=== PATIENT | female | born 1955 | race Caucasian/White ===

== ENCOUNTER → 2018-05-25 | Outpatient (CLI) | payer OTHER ==
[~2018-05-25] MED LIST: ALLEGRA180 MG PO; CALCIUM 600 +1 EA14 PO; DILTIAZEM 24HR240 MG PO; FLONASE SENSIM5.9 ML NASAL; LIPITOR10 MG PO; LOTEMAX3.5 GM OPHTHALMIC; METOPROLOL SUCC25 M1 PO; OMEPRAZOLE40 MG PO; PROAIR HFA8.5 GM IH; SYSTANE 0.3-0.1 EACH OP; ULTRAM 50MG TAB50 MG PO; ZADITOR5 M1 OP
--- NOTE | 2018-06-07 17:11 | PATH ---
[address] [address] PATHOLOGY RPT PROCEDURE Name: LAUREL BARBA Room: [facility] MASSIMO Bowden#: [id number] Admission: 05/25/18 Date of : 57 Discharge: Report #: [id number] Path Case #: [id number] [facility] Accession Number: [id number] . 01 Material submitted: . LEFT BREAST TISSUE . 01 Clinical history: . 0.46 x 0.54 x 0.62 cm mass 3 o'clock, 6 cm from nipple . 02 Diagnosis: Left breast tissue, 3:00, 6 cm from nipple, image guided core biopsies: - INFILTRATING DUCTAL ADENOCARCINOMA, INTERMEDIATE GRADE, SPANNING 4 MM (SEE COMMENT). [facility]/05/27/2018 . 02 Comment: Specimen type: Image guided core biopsies Tumor site: Left breast, 3:00, 6 cm from nipple Tumor quantitation: Approximately 10% of submitted tissues Histologic type: Ductal adenocarcinoma Histologic grade: Intermediate grade Tubules, nuclei and mitoses: 3, 2, 1 LVSI: Not identified Microcalcifications: Not identified Markers: Breast tumor profile pending Block: A3 . The majority of the submitted samples, represent benign fat without epithelial tissues; however, in A3 are several spans of infiltrating carcinoma noted to have prominent chadian filing and invading between adipocytes with minimal distortion reminiscent of a lobular carcinoma; however, focal duct formation is noted and a properly controlled E-cadherin stain performed on A3 strongly highlights the neoplastic cells supporting the classification. There is no DCIS or LCIS seen. Breast tumor profile studies are pending and will be the subject of an addendum report. . Reviewed with Dr. Mervat Farr who agrees with the diagnosis. Ashlee Mora notified of preliminary findings at approximately 12:30 on 05/26/2018. (ELIZABETH:[facility] 05/27/2018) . 02 Addendum: . Special studies report received from [facility], [address] [place] [address], [address], [place], [address], on case [id number], labeled with their number [id number], dated 05/31/2018. [place] [address] PATHOLOGY RPT PROCEDURE Name: LAUREL BARBA Room: [facility]#: [id number] Admission: 05/25/18 Date of : 57 Discharge: Report #: [id number] Path Case #: [id number] . Breast/Prognostic Marker Analysis . Specimen Site: Left Breast, 3:00 (Biopsy), Infiltrating Ductal Adenocarcinoma Specimen ID #: [id number] . ER (Estrogen Receptor) Present/Positive Percent: 95.00% Analysis: Manual Comments: Staining Intensity: Strong. . CT (Progesterone Receptor) Present/Positive Percent: 60.00% Analysis: Manual Comments: Staining Intensity: Moderate. . HER2 Equivocal Score: 2+ Analysis: Manual . Ki-67 Low Proliferation Percent: 10.00% Analysis: Manual . Time to Fixation (Cold Ischemic Time): 4 minutes Duration of Fixation: 10 hours Type of Fixative: 10% Neutral Buffered Formalin . Comments: Additional studies: Reflex HER2 by FISH will be reported separately. . at [facility] [employer]. Dennis Gonzalez M.D. Pathologist . . Methodology The HER2 Receptor protein expression is analyzed using the Continental HER2 rabbit monoclonal antibody (clone 4B5). This assay is used for diagnostic determination of the HER2 protein over-expression in paraffin embedded, formalin fixed breast cancer tissue on the Continental Benchmark. The specimen is processed using a polymer detection system. The membrane staining of the tumor is determined either by manual score or [place] [address] PATHOLOGY RPT PROCEDURE Name: LAUREL BARBA Room: [facility] MASSIMO Bowden#: [id number] Admission: 05/25/18 Date of : 57 Discharge: Report #: [id number] Path Case #: [id number] antibody is intended for in vitro diagnostic use. The score is reported as per package insert; 0, 1+, 2+, and 3+. This test is used for clinical purposes. . A rabbit monoclonal antibody (clone SP1) that recognized the Estrogen Receptor is used to perform immunohistochemistry on routinely fixed (formalin) paraffin embedded tissue on the Continental Benchmark. The specimen is processed using a polymer detection system. The percentage of stained tumor nuclei is determined either manually or by image analysis. This test is intended for in vitro diagnostic use. This test is used for clinical purposes. . A rabbit monoclonal antibody (clone 1E2) that recognized the Progesterone Receptor is used to perform immunohistochemistry on routinely fixed (formalin) paraffin embedded tissue on the Continental Benchmark. The specimen is processed using a polymer detection system. The percentage of stained tumor nuclei is determined either manually or by image analysis. This test is intended for in vitro diagnostic use. This test is used for clinical purposes. . A rabbit monoclonal antibody (clone 30-9) that recognized Ki67 is used to perform immunohistochemistry on routinely fixed (formalin) paraffin embedded tissue on the Continental Benchmark. The specimen is processed using a polymer detection system. The percentage of stained tumor nuclei is determined either manually or by image analysis. This test is intended for in vitro diagnostic use. This test is used for clinical purposes. . Intended Use: This antibody is intended for in vitro diagnostic (IVD) use. HER2 (4B5) is a rabbit monoclonal antibody intended for the semi-quantitative detection of HER2 antigen in sections of formalin-fixed, paraffin embedded normal and neoplastic tissue. . This antibody is intended for in vitro diagnostic (IVD) use. Estrogen Receptor (ER) (SP1) is a rabbit monoclonal antibody (IgG) that is intended for the qualitative detection of estrogen receptor (ER) antigen in sections of formalin-fixed, paraffin-embedded tissue. ER is a rabbit monoclonal antibody that recognizes human estrogen receptor alpha. . This antibody is intended for in vitro diagnostic (IVD) use. Progesterone Receptor (CT) (1E2) is a rabbit monoclonal antibody (IgG) that is intended for the qualitative detection of progesterone receptor (CT) antigen in sections of formalin fixed, paraffin embedded tissue. CT is a rabbit monoclonal antibody that recognizes the A and B forms of the human progesterone receptor. . This antibody is intended for in vitro diagnostic (IVD) use. Ki-67 (30-9) is a rabbit monoclonal antibody (IgG) directed against C-terminal portion of Ki-67 antigen. Staining for Ki-67 can be used to aid [place] [address] PATHOLOGY RPT PROCEDURE Name: LAUREL BARBAN Room: [facility]#: [id number] Admission: 05/25/18 Date of : 57 Discharge: Report #: [id number] Path Case #: [id number] proliferative activity of normal and neoplastic tissue. Ki-67 is a nuclear protein expressed in proliferating cells. During the cell cycle, the Ki-67 antigen is present in the G1, S, G2 and M phase but is absent in the G0 (quiescent phase). . . Disclaimer This Test was performed by [employer] at [address], [address]. . [facility] is a business unit of [employer] a wholly-owned subsidiary of [employer]. . This assay has not been validated on decalcified tissues. Results should be interpreted with caution if this specimen was decalcified given the likelihood of false negativity on decalcified specimens. . Any image(s) that accompany this report is/are a entry level marketing representative image(s) only and should not be used to render a diagnosis. . This interpretation is contingent on the specimen and the clinical information received. . For any special tests/stains performed, known positive cells or tissues are tested with each marker and examined to ensure positivity. Positive and negative internal controls, if present, react appropriately. . This analysis is an adjunct to the evaluation of the referring physician and does not represent a final diagnosis. . The immunohistochemistry tests performed at [employer]. were validated on tissue fixed in 10% neutral buffered formalin. The performance characteristics of the tests performed on tissue processed in other fixatives is not known. . HER2 testing at [employer] is performed in compliance with the 2013 updated ASCO/CAP Clinical Practice Guidelines and Recommendations for HER2 testing in Breast Cancer. If the result is EQUIVOCAL (2+), it must be confirmed by an alternative assay such as FISH or Dual DARI. REF: Pebbles MORA, et al. Recommendations for human epidermal growth factor receptor 2 testing in breast cancer: [place] Society of Clinical Oncology/College of [place] pathologists Clinical Practice Guideline Update. J Clin Oncol. 2013 Jun 16;31(31):8410-0666. . HER2 and ER/CT ASCO/CAP guidelines require fixation in neutral buffered formalin for a minimum of 6 and a maximum of 72 hours. Fixation times less than 6 hours may not adequately preserve cell proteins. Fixation times longer than 72 hours may cause excess [place] [address] PATHOLOGY RPT PROCEDURE Name: LAUREL BARBA Room: [facility] MASSIMO Bowden#: [id number] Admission: 05/25/18 Date of : 57 Discharge: Report #: [id number] Path Case #: [id number] the antigen available for staining. Either scenario can cause reduced staining; hence false negative results are possible and should be considered for these situations if the HER2 IHC score is less than 3+ or ER or CT is negative (no staining or <1% positive). It is recommended that specimens fixed longer than 72 hours with HER2 IHC scores less than 3+ be confirmed by HER2 FISH or Dual DARI. The time from biopsy/excision to fixation in formalin (cold ischemic time) must be less than 1 hour. Time to fixation (cold ischemic time) greater than 1 hour should be interpreted with caution. HER2 testing, mainly HER2 by FISH, is particularly vulnerable since excessive cold ischemic time results in preferential loss of HER2 probe signals that may lead to false negative results. . SCORE STAINING PATTERN IN TUMOR CELLS INTERPRETATION RESULTS 0 No staining observed or incomplete, faint membrane staining in less than or equal to 10% of tumor cells. Negative 1+ Incomplete, faint membrane staining in greater than 10% of tumor cells. Negative 2+ Incomplete and/or weak/moderate circumferential membrane staining in greater than 10% of the invasive tumor cells or complete, circumferential, intense alternative assay staining in less than or equal to 10% of invasive tumor cells. Equivocal* *Must be confirmed by alternative assay (IHC/FISH/Dual DARI) 3+ Intense, complete membrane staining in greater than 10% of tumor cells. Positive . A complete copy of the report is on file. . Professional and Technical services performed by [facility]. at [facility] [address]. . (TWILA 06/01/2018) . . . This case was prepared and proofread by Dr. Matt Cho and electronically signed and released by Dr. John Flowers. . (ELIZABETH:twila; 06/01/2018) LBQ/06/01/2018 Addendum Electronically Signed by John Flowers M.D. Addendum #2: Special studies report received from [facility], [facility] [address] PATHOLOGY RPT PROCEDURE Name: LAUREL BARBA Room: [facility]#: [id number] Admission: 05/25/18 Date of : 57 Discharge: Report #: [id number] Path Case #: [id number] [address], [facility], on case [id number], labeled with their number [id number], dated 06/07/2018. . Fluorescence in situ Hybridization (FISH) Report HER2/CAITY-17 Dual-Probe (Breast Cancer) . Result: Negative/Not Amplified HER2/CAITY-17 Ratio: 1.5 Avg number of HER2 Signals/Nucleus: 2.7 . Indication for Study: Breast Cancer Specimen Site/Type: Left Breast, 3:00 (Biopsy) Fixative: 10% Neutral Buffered Formalin Time to Fixation: 4 Minutes Duration of Fixation: 10 Hours . HER2 FISH ANALYSIS Number of tumor cells counted: 20 Number of observers: 2 Avg number of HER2 Signals/Nucleus: 2.7 Avg number of CAITY-17 Signals/Nucleus: 1.9 Ratio of average HER2/CAITY-17: 1.5 . See report [id number] for further information. . Reviewed and electronically signed by Dennis Gonzalez M.D. on 06/07/2018 at [employer] Dennis Gonzalez M.D. . . Methodology: A FDA approved DAKO HER2 IQFISH pharmDX (HER2/CAITY-17 DNA Probe Kit) was used for the assessment of HER2 gene amplification status. The FISH analysis was performed on areas of invasive tumor cells that were defined by a pathologist from a corresponding H/E slide. A minimum of twenty invasive tumor nuclei were analyzed by two technologists. For each nucleus, the number of HER2 signals and the number of centromere 17 (CAITY-17) signals were recorded. Enumeration results are reported as a ratio of the total HER2 hybridization signals to CAITY-17 hybridization signals. An average number of HER2 signals/nucleus and an average number of centromere 17 signals/nucleus were also recorded. If the HER2/CAITY-17 ratio is greater than or equal to 2, the HER2 gene status is Amplified/Positive. If the HER2/CAITY-17 ratio is <2, the HER2 gene status is Non-Amplified/Negative. If results are at or near the cut off (1.8-2.2), an additional 20 nuclei are counted and the ratio for 40 nuclei is recalculated. A HER2/CAITY-17 ratio of 1.8-2.2 should be interpreted with caution. The ASCO/CAP guideline of 2013 (see below), includes additional criteria for determination of HER2 amplification or equivocal status based on the average HER2 signals/[place] [address] PATHOLOGY RPT PROCEDURE Name: LAUREL BARBAN [facility] [id number] Admission: 05/25/18 Date of : 57 Discharge: Report #: [id number] Path Case #: [id number] . ASCO/CAP 2018 SCORING CRITERIA GROUP 1 HER2/CAITY-17 ratio >/= 2.0 HER2 signals/cell >/= 4.0 FISH Positive . GROUP 2 HER2/CAITY-17 ratio >/= 2.0 HER2 signals/cell < 4.0 Additional work-up required (see comments) . GROUP 3 HER2/CAITY-17 ratio < 2.0 HER2 signals/cell >/= 6.0 Additional work-up required (see comments) . GROUP 4 HER2/CAITY-17 ratio < 2.0 HER2 signals/cell >/= 4.0 AND < 6.0 Additional work-up required (see comments) . GROUP 5 HER2/CAITY-17 ratio < 2.0 HER2 signals/cell < 4.0 FISH Negative . . Specimen handling: Tissue samples should be preserved in 10% neutral buffered formalin for 18-24 hours per FDA approved DAKO HER2 IQFISH pharmDX. Extended fixation time might increase the incubation time required for Pepsin digestion. ASCO/CAP guidelines requires fixation for a minimum of 6 and a maximum of 72 hours. The time from biopsy/excision to fixation in formalin (cold ischemic time) must be less than an hour. Time to fixation (cold ischemic time) greater than 1 hour should be interpreted with caution. HER2 testing, mainly HER2 by FISH, is particularly vulnerable since excessive cold ischemic time results in preferential loss of HER2 probe signals that may lead to false negative results. . Intended Use: HER2 IQFISH pharmDX is indicated as an aid in the assessment of breast cancer patients for whom Herceptin? (Trastuzumab), PERJETATM (pertuzumab) or KADCYLATM (ado-trastuzumab emtansine) treatment is being considered. Results from HER2 IQFISH pharmDX are also used as an adjunct to the clinicopathologic information currently used for estimating prognosis in stage II, node-positive breast cancer patients. . Reference: [address] [address] PATHOLOGY RPT PROCEDURE Name: LAUREL BARBA Room: [facility].#: [id number] Admission: 05/25/18 Date of : 57 Discharge: Report #: [id number] Path Case #: [id number] Pebbles MORA, Casey SWAIN, Mahi QUINTANA, et al: Recommendations for HER2 Testing in Breast Cancer: ASCP/CAP Clinical Practice Guideline Update. J Clin Oncol. 2013 Jun 16; 31(31):1449-6897. DAKO kit: Histology FISH Accessory kit code K5799 . Disclaimer This Test was performed by [employer]. at [address] [place] [address]. [facility] is a business unit of [employer] a wholly-owned subsidiary of [employer]. . . This assay has not been validated on decalcified tissues. Results should be interpreted with caution if this specimen was decalcified given the likelihood of false negativity on decalcified specimens. . Any image(s) that accompany this report is/are a entry level marketing representative image(s) only and should not be used to render a diagnosis. . A copy of the complete report is on file. . Professional services performed by [employer]. at [address] [place] [address]. Technical services performed by [facility]. at [address] [place] [address]. . (AMJ 06/07/2018) . AZJ/06/07/2018 Addendum Electronically Signed by Matt Cho MD, Pathologist . 02 Electronically signed: . Matt Cho MD, Pathologist NPI- [id number] . 01 Gross description: . Received in formalin labeled "Laurel Barba, left breast 3:00, 6 cm FN," are multiple needle cores of yellow-perez fibrofatty tissue measuring 0.8 x 1.2 x 0.3 cm in aggregate dimensions. The tissue is submitted in its entirety in cassettes A1 through A3. The cold ischemic time is 4 minutes. The total formalin fixation time is approximately 10 hours. (TSD; 05/25/2018) TOB/TOB . 02 Pathologist provided ICD-10: C50.912 . 02 CPT . [facility] [address] [place] [address] PATHOLOGY RPT PROCEDURE Name: LAUREL BARBA Room: [facility]#: [id number] Admission: 05/25/18 Date of : 57 Discharge: Report #: [id number] Path Case #: [id number], [id number] Specimen Comment: A courtesy copy of this report has been sent to Specimen Comment: [phone], . Specimen Comment: Report sent to / DR RODRIGUES Performed at: 01 [facility] [address], [place], [place] [address] MD Bulmaro Chaudhary MD Phone: [phone] Performed at: 02 [facility] [address] [place], [place] [id number] MD Matt Cho MD Phone: [phone]
== END | disposition home or self-care (01) ==
LOC: M.ULTRA 08:03
DX: C50.912 Malignant neoplasm of unspecified site of left female breast (principal); R92.1 Mammographic calcification found on diagnostic imaging of breast; Z91.040 Latex allergy status; Z88.8 Allergy status to other drugs, medicaments and biological substances; Z79.899 Other long term (current) drug therapy

== ENCOUNTER → 2018-06-08 | Outpatient (CLI) | payer OTHER ==
[2018-06-08 11:08] LABS: CREATININE 0.7 mg/dL (0.6-1.3)
== END ==
LOC: M.LAB 10:30 → M.MRI 11:30
PROVIDERS: Surgery
DX: C50.412 Malignant neoplasm of upper-outer quadrant of left female breast (principal)

== ENCOUNTER → 2018-06-28 | Day surgery (SDC) | payer OTHER ==
[2018-06-28 09:25] LABS: ABSOLUTE BASOPHILS 0.1 thou/uL (0.0-0.2); ABSOLUTE EOSINOPHILS 0.1 thou/uL (0.0-0.7); ABSOLUTE LYMPHOCYTES 1.7 thou/uL (0.8-5.3); ABSOLUTE MONOCYTES 0.8 thou/uL (0.0-1.2); ABSOLUTE NEUTROPHILS 3.8 thou/uL (1.6-8.1); BASOPHILS 0.9 %; EOSINOPHILS 2.3 %; HEMATOCRIT 38.7 % (37.0-47.0); HEMOGLOBIN 12.8 gm/dL (12.0-15.0); LYMPHOCYTES 25.9 %; MCH 31.3 pg (26.0-34.0); MCHC 33.1 g/dL (28.0-37.0); MCV 94.6 fL (80.0-100.0); MONOCYTES 11.8 %; MPV 7.9 fl. (7.2-11.1); NUCLEATED RBCS 0 /100WBC; PLATELET COUNT* 298 thou/uL (150-400); POLYS 59.1 %; RBC 4.09 mil/uL (4.20-5.00); RDW-CV 13.5 % (10.5-14.5); WBC 6.5 thou/uL (4.0-11.0)
[2018-06-28 09:31] LABS: CALCIUM 9.1 mg/dL (8.5-10.1); CREATININE 0.8 mg/dL (0.6-1.3); POTASSIUM 3.7 mmol/L (3.5-5.1)
[2018-06-28 09:35] LABS: ALBUMIN 3.8 g/dL (3.4-5.0); TOTAL BILIRUBIN 0.4 mg/dL (<0.1-1.0); TOTAL PROTEIN 7.2 g/dL (6.4-8.2)
--- NOTE | 2018-06-28 11:22 | EKG ---
[place] [address] ELECTROCARDIOGRAM REPORT Name: OLIVERIO HUTCHINS Room: [facility]#: [id number] Admission: 06/28/18 Attend Phys: Ashlee Carter DO Discharge: Date of : 57 Report #: [id number] THIS REPORT FOR: //name// [facility] Test Date: 2018-06-28 Test Time: 08:58:37 Pat Name: OLIVERIO HUTCHINS Department: Room: Gender: F Benefits Representative: : 1955 Requested By: Ashlee Carter Order Number: [id number] Reading MD: Óscar Coombs Measurements Intervals [place] Rate: 65 P: 57 [place]: 191 QRS: 13 QRSD: 93 T: 6 QT: 427 QTc: 444 Interpretive Statements Sinus rhythm Left atrial enlargement Compared to ECG 02/11/2008 08:18:26 Atrial abnormality now present First degree AV block no longer present Electronically Signed On 06-28-2018 11:22:14 [employer] ARCHITECT by Óscar Coombs [email or web address] <ELECTRONICALLY SIGNED> By: Óscar Coombs MD, [facility] 06/28/18 [phone] Óscar Coombs MD, [facility] /EPI
--- NOTE | 2018-06-30 11:26 | OP ---
[address] [address] OPERATIVE REPORT Name: OLIVERIO HUTCHINS Room: [facility].#: [id number] Admission: 06/28/18 Attend Phys: Ashlee Carter DO Discharge: Date of : 57 Report #: [id number] THIS REPORT FOR: //name// CC: Ashlee Peñaloza DATE OF SERVICE: 06/28/2018 PREOPERATIVE DIAGNOSIS: Left breast cancer. POSTOPERATIVE DIAGNOSIS: Left breast cancer. FINDINGS: Wire and needle inserted in the left breast. SURGEON: Ashlee Carter DO INSTRUMENTATION AND CONTROLS TECHNICIAN: Kayleigh Byrd, PGY1 PROCEDURE PERFORMED: Left breast wire-guided lumpectomy and a left deep sentinel lymph node dissection. ANESTHESIA: General LMA and local. ESTIMATED BLOOD LOSS: 20 mL. DRAINS: None. SPECIMENS: Left breast lumpectomy with wire superior medial margin, lateral margin and left deep sentinel lymph node. COMPLICATIONS: None. CONDITION: Stable. DISPOSITION: PACU to home. HISTORY OF PRESENT ILLNESS: The patient is a very pleasant 62-year-old female who initially presented to my office with a change in her mammogram. She underwent an ultrasound-guided biopsy, which was positive for left breast cancer. She was seen by Oncology and underwent further preoperative workup. It was then decided to move forward with a left breast wire-guided lumpectomy and a left sentinel lymph node dissection. Risks discussed included bleeding, infection, pain, scar formation, deformation of the breast, need for further surgery, injury to artery, vein or nerve and the axilla causing chronic pain, [address] [address] OPERATIVE REPORT Name: OLIVERIO HUTCHINS Room: [facility] M..#: [id number] Admission: 06/28/18 Attend Phys: Ashlee Carter DO Discharge: Date of : 57 Report #: [id number] numbness or swelling and risks of general anesthesia. The patient understood these risks and elected to proceed. DESCRIPTION OF PROCEDURE: The patient initially presented to preop and was then taken to Radiology where she underwent a left breast wire localization and a left breast nuclear medicine injection. She then returned to preop where she underwent informed consent. She was taken to the Operating Room and laid supine on the operating room table. SCDs were placed to bilateral lower extremities. Ancef was given in the perioperative period. General LMA anesthesia was induced by anesthesia without difficulty. A 5 mL of Lymphazurin blue dye were injected in the periareolar area. Left breast was then prepped and draped in the standard sterile fashion. Timeout was performed to verify the patient and procedure. Tip of the wire and the needle were palpated and marked. A 10 mL of 0.5% Marcaine were injected in the area of the planned incision. Incision was made with a 10-blade and cautery was used for hemostasis. Then, using the wire for guidance, a lumpectomy specimen was formed using a combination of blunt and cautery dissection. Specimen was marked in the superior and lateral direction and was sent to Radiology for mammography. While we were awaiting the return call, I turned my attention to the axilla. Neoprobe was brought on to the field and the nipple was investigated, the highest uptake was approximately 12,000. The Neoprobe was then moved into the axilla and the area of highest uptake was marked. A 10 mL of 0.5% Marcaine were injected in the area of the planned incision. Incision was made with a 10-blade and cautery was used for hemostasis. Then, using a combination of blunt and cautery dissection, I gently dissected down into the axilla until the clavipectoral fascia was identified. A self-retaining Weitlaner retractor was placed within the wound. The clavipectoral fascia was gently incised using cautery. At this point, very clear line of blue dye could be seen diving down into the axilla. This blue line was followed until a large blue lymph node was identified. It was gently grasped using an Allis clamp and elevated. Uptake on the Neoprobe on this lymph node was approximately 2100. The lymph node was gently dissected free from the surrounding tissues. Once out of the body, it was reexamined with a Neoprobe and the highest uptake was 2300. This was then handed off as the left deep sentinel lymph node. Neoprobe was returned into the axilla and there was no further uptake noted. Wound was irrigated until clear. Hemostasis was assured. Wound was then filled with FloSeal. Weitlaner retractor was removed. At this point, Radiology then returned our phone call and indicated that they did not have the clip in the specimen, although the wire was intact and there were microcalcifications in the specimen. At this point, an additional superior medial margin and a lateral margin were both taken. Both were marked in the superior and lateral direction and returned to Radiology for re-mammography. At this point, all of the breast tissue from the skin surface at the entry point of the wire all the way to the nipple had been completely removed from the 3-6 o'clock position. Radiologist again returned the phone call and indicated that they did not have the thick clip, but that he believed that we did have the required specimen. The wound was then irrigated until clear. Hemostasis was [facility] [address] [place] [address] OPERATIVE REPORT Name: OLIVERIO HUTCHINS [id number]: 06/28/18 Attend Phys: Ashlee Carter DO Discharge: Date of : 57 Report #: [id number] assured. This cavity was then also filled with FloSeal. Wound was closed in a layered fashion using deep and superficial stitches of 3-0 Vicryl in inverted interrupted fashion. Skin wound was closed with running 4-0 Monocryl. A total of 30 mL of 0.5% Marcaine were used to anesthetize the wounds. Wounds were then cleansed and covered with Mastisol, Steri-Strips, 4 x 4's, and a Tegaderm. The patient was then allowed to awaken from anesthesia, was extubated and transported to the recovery room with no further difficulties. Counts were correct x 2 at the conclusion of the case. <ELECTRONICALLY SIGNED> By: Ashlee Carter DO 06/30/18 [id number] Carter DO /nt
--- NOTE | 2018-07-25 09:52 | PATH ---
[address] [address] PATHOLOGY RPT PROCEDURE Name: LAUREL HUTCHINS Room: [facility].#: [id number] Admission: 06/28/18 Date of : 57 Discharge: Report #: [id number] Path Case #: [id number] [facility] Accession Number: [id number] . 01 Material submitted: . PART A: LEFT BREAST MASS, LUMPECTOMY PART B: SENTINEL NODE, LEFT BREAST PART C: MEDIAL BREAST TISSUE PART D: LATERAL BREAST TISSUE . 01 Clinical history: . Malignant neoplasm of upper outer quadrant of left breast; left breast infiltrating ductal carcinoma, ER/MI positive . A) short suture superior, long suture lateral; C) short suture superior, long suture lateral; D) short suture superior, long suture lateral . . . . 02 Diagnosis: A. Left breast mass, lumpectomy: - INFILTRATING DUCTAL ADENOCARCINOMA, INTERMEDIATE GRADE, SPANNING AN ESTIMATED 25 MM, IN ASSOCIATION WITH CHANGES OF PRIOR BIOPSY WITH EXTENSIVE INVOLVEMENT OF ANTERIOR, LATERAL AND POSTERIOR MARGINS. - DUCTAL CARCINOMA IN SITU (DCIS), NUCLEAR GRADE III, COMEDO, SOLID AND CRIBRIFORM TYPES ASSOCIATED WITH CALCIFICATIONS, SPANNING ESTIMATED 15 MM, WITH FOCAL INVOLVEMENT OF ANTERIOR MARGIN. SEE COMMENT. . B. Left breast sentinel node: - METASTATIC ADENOCARCINOMA, INTERMEDIATE GRADE, TYPICAL OF BREAST PRIMARY, SPANNING 3 MM, WITH FOCAL EXTRANODAL EXTENSION(08/16). SEE COMMENT. . C. Medial breast tissue: - Benign breast tissue with ductal epithelial hyperplasia, duct ectasia, focal chronic inflammation and scattered luminal calcifications, negative for atypia. . D. Lateral breast tissue: - DUCTAL CARCINOMA, INTERMEDIATE GRADE, SPANNING ESTIMATED 25 MM, WITH PROMINENT INVOLVEMENT OF LATERAL, SUPERIOR AND ANTERIOR MARGINS, AND WITH LYMPHOVASCULAR INVASION IDENTIFIED. - FOCAL DCIS, NUCLEAR GRADE III, SOLID TYPE, SPANNING 6 MM WITH INVOLVEMENT OF ANTERIOR MARGIN. SEE COMMENT. . (ELIZABETH:mml; 06/30/18) QL/07/04/2018 [place] [address] PATHOLOGY RPT PROCEDURE Name: LAUREL HUTCHINSN Room: [facility].#: [id number] Admission: 06/28/18 Date of : 57 Discharge: Report #: [id number] Path Case #: [id number] . 02 Comment: Surgical Pathology Cancer Case Summary . INVASIVE CARCINOMA OF THE BREAST: . Procedure Other (specify): Lumpectomy with additional wider medial and lateral margins . Specimen Laterality Left . . Tumor Size Greatest dimension of largest invasive focus >1 mm: Estimated 25 mm (see comment) . Histologic Type Invasive ductal carcinoma . Histologic Grade (Hitchcock Histologic Score) Glandular (Acinar)/Tubular Differentiation Score 3 (<10% of tumor area forming glandular/tubular structures) . Nuclear Pleomorphism Score 2 (cells larger than normal with open vesicular nuclei, visible nucleoli, and moderate variability in both size and shape) . Mitotic Rate Score 1 (=3 mitoses per mm2) . Overall Grade Grade 2 (scores of 6 or 7) . + Tumor Focality Single focus of invasive carcinoma . Ductal Carcinoma In Situ (DCIS) Present +Negative for extensive intraductal component (EIC) . + Size (Extent) of DCIS + Estimated size (extent) of DCIS (greatest dimension using gross and microscopic evaluation): at least 15 mm . + Architectural Patterns + Comedo + [place] [address] PATHOLOGY RPT PROCEDURE Name: LAUREL HUTCHINS Room: [facility]#: [id number] Admission: 06/28/18 Date of : 57 Discharge: Report #: [id number] Path Case #: [id number] + Solid . + Nuclear Grade + Grade III (high) . + Necrosis + Present, central (expansive "comedo" necrosis) . + Lobular Carcinoma In Situ (LCIS) + No LCIS in specimen . Margins . Invasive Carcinoma Margins Positive for invasive carcinoma Specify margin(s): Anterior, lateral and posterior of lumpectomy (A) and lateral, superior and anterior margins of additional lateral marginal tissue (D) . DCIS Margins Positive for DCIS + Multifocal + Anterior margin of lumpectomy (A) and anterior margin of additional wider lateral breast tissue (D) . Regional Lymph Nodes Involved by tumor cells + Size of Largest Metastatic Deposit (millimeters): 3 mm . + Extranodal Extension: + Present . Treatment Effect No known presurgical therapy . + Lymphovascular Invasion + Present . PATHOLOGIC STAGE CLASSIFICATION (pTNM, AJCC 8th Edition) . Primary Tumor (Invasive Carcinoma) (pT) pT2:Tumor >20 mm but </=50 mm in greatest dimension . Regional Lymph Nodes Modifier (sn):[place] node evaluated. . Category (pN) pN1a:Metastases in 1 to 3 axillary lymph nodes, at least 1 [place] [address] PATHOLOGY RPT PROCEDURE Name: LAUREL HUTCHINS Room: [facility]#: [id number] Admission: 06/28/18 Date of : 57 Discharge: Report #: [id number] Path Case #: [id number] larger than 2.0 mm . + Ancillary Studies performed previously ([id number] A3) ER 95%, MI 60%, HER2 equivocal with FISH negative, Ki-67 10% . + Microcalcifications + Present in invasive carcinoma + Present in non-neoplastic tissue + Other: Medial calcification of blood vessels . + Clinical History Previous left breast tissue 3:00, 6 cm from nipple, image-guided core biopsy showing ductal adenocarcinoma intermediate grade ([id number]) . The tumor infiltrates in a prominent "Omani file" fashion, and also extends in between individual adipocytes, reminiscent of lobular carcinoma and similar to that seen in the prior core biopsy, which was evaluated and shown to be strongly positive for E-cadherin throughout. . The size of the tumor in specimens A and D are estimated based on its identification in the slides (A14, A16, A18, A20 and A22-26; D1-D10). Properly-controlled keratin AE1/AE3 performed on B1 highlights the metastatic tumor, also demonstrating focal extranodal involvement of fat. . (ELIZABETH:mmstevie; 06/30/18) . 02 Addendum: . Special studies report received from [facility], [address] [place] [address], [address], [place], [address], on case [id number], labeled with their number [id number], dated 07/20/2018. . Referral Testing Report . . Test Performed Prosigna(R) . Specimen Type Tissue - Paraffin-Embedded - Breast, Left . Results Alternate Control Number: [id number] Alternate Total Volume: Not Provided Fasting: No Date collected: 06/28/2018 . Block Number: [place] [id number] Tumor Size: > 2 [place] [address] PATHOLOGY RPT PROCEDURE Name: LAUREL HUTCHINS [id number] Admission: 06/28/18 Date of : 57 Discharge: Report #: [id number] Path Case #: [id number] Lymph Nodes: Node-positive (1-3 nodes) . Patient Prosigna Score: 72 . Risk Group: HIGH RISK . The Prosigna Score ranges from 0 through 100 and correlates with the probability of distant recurrence (DR) in the tested population. Risk classification is provided to guide the interpretation of the Prosigna Score using cutoffs related to clinical outcome. Prosigna Scores greater than 80 are considered high risk, and the score is not reported. . Risk Group Prosigna Score . Low risk 0-40 . High risk 41-100 . Distant Recurrence Probability Comment: In the clinical validation study, patients who were node- positive (1-3 nodes), with a Prosigna Score of 72 were in the high risk group. The high risk population averaged a 24% probability of distant recurrence at 10 years. The Prosigna algorithm was used in retrospective analysis of the ABCSG-8 clinical trial which included more than 1400 patients with varying risks of distant recurrence. Please refer to Prosigna package insert for further information, including the graphic content of the retrospectively fitted model relating Prosigna Score to 10-year distant recurrence for node-positive (1-3 nodes) patients in the ABCSG-8 study. . Clinical Validation Study Prognosis for node-positive (1-3 nodes) breast cancer patients was determined based on the probability of distant recurrence(DR) for this patient population in the validation study ABCSG-8. This study analyzed 382 node-positive (1-3 nodes) samples using a prospectively defined analysis plan. The data shown in the table below are for post-menopausal women with hormone receptor-positive, node-positive (1-3 nodes), Stage II breast cancer that received 5 years of endocrine therapy. . . Probability of DR Prespecified Patient Risk Group at 10 years for node-negative Patients . . ABCSG-8 Low Risk High Risk (95% CI) (95% [place]) [place] [address] PATHOLOGY RPT PROCEDURE Name: LAUREL HUTCHINS Room: [facility]#: [id number] Admission: 06/28/18 Date of : 57 Discharge: Report #: [id number] Path Case #: [id number] 6% 24% (3%-12%) (19%-31%) . . Test Information: Background: The Prosigna(TM) Breast Cancer Prognostic Gene Signature Assay is an FDA approved assay which provides a risk category and numerical score, to assess a patient's risk of distant recurrence of disease at 10 years in postmenopausal women with node-negative (Stage I or II) or node-positive (Stage II), hormome receptor-positive (HR+) breast cancer. The Prosigna(TM) assay measures gene expression levels of RNA extracted from formalin-fixed paraffin-embedded (FFPE) breast tumor tissue previously diagnosed as invasive breast carcinoma. . Performance characteristics of the Prosigna(TM) assay have been established for postmenopausal women with hormone receptor positive early stage breast cancer treated with 5 years of adjuvant endocrine therapy. Performance with other treatment regimens or in other patient populations has not been established. The interpretation of Prosigna(TM) assay results (Prosigna(TM) Score, risk category) should be evaluated within the context of other clinicopathological factors, the patient's medical history and any other laboratory test results. Prosigna(TM) is not intended for diagnosis, to predict or detect response to therapy, or to help select the optimal therapy for patients. . Methodology: The Prosigna(TM) assay is performed on RNA isolated from FFPE breast tumor tissue. It simultaneously measures the expression levels of 50 genes used in PAM50 classification algorithm, 8 housekeeping genes used for signal normalization, 6 positive controls, and 8 negative controls in a single hybridization reaction, using nucleic acid probes designed specifically to those genes. . Comment: Microdissection has been performed at [address] [facility], [place] [address]. . References: 1. Package Insert: Prosigna Breast Cancer Prognostic Gene Signature Assay; v1, created 2013-04; REF [id number]. 2. Brittany Castellanos, et al, Predicting risk for late metastasis: The PAM50 risk of recurrence (ROR) score after 5 years of endocrine therapy in postmenopausal women with HR+ early breast cancer: A study on 1,478 patients for the ABCSG-8 trial. Bibi Oncol 2013; 24 (Supplement 3): [id number]. 3. Niranjan Tierney et al, Supervised Risk Predictor of Breast Cancer Based on Intrinsic Subtypes. J. Clin Onc v27 No.8 (2009):3233-4591. [place] [address] PATHOLOGY RPT PROCEDURE Name: LAUREL HUTCHINS Room: [facility] M.R.#: [id number] Admission: 06/28/18 Date of : 57 Discharge: Report #: [id number] Path Case #: [id number] . Director Review: Antonieta Linares, Ph.D., [facility], Director, Molecular Genetics [facility] [place], [place] Rigger Helper: Zane Galvez . . Disclaimer This Test was performed by [facility] at [address] [place] [address], [address]. [employer] is a business unit of [employer], a wholly-owned subsidiary of [employer]. . . . General Comments and Additional Information Clinical Info: DATE OF COLLECTION: 06/28/ Clinical Info: 2018 @ 1155 SPECIMEN TYPE: Clinical Info: 1 PARAFREDOI . Alternate Control Number: [id number] Alternate Total Volume: Not Provided Fasting: No . Ordered Items Prosigna(R) . . TESTS RESULT FLAG UNITS REFERENCE LAB INTERVAL Prosigna(R) Block Number: Comment: 01 [place] [id number] Tumor Size: > 2 cm 01 Lymph Nodes: Node-positive (1-3 nodes) 01 Patient Prosigna Score 72 01 Risk Group HIGH RISK 01 The Prosigna Score ranges from 0 through 100 and correlates with the probability of distant recurrence (DR) in the tested population. Risk classification is provided to guide the interpretation of the Prosigna Score using cutoffs related to clinical outcome. Prosigna Scores greater than 80 are considered high risk, and the score is not reported. . Risk Group Prosigna Score . Low risk 0-40 [place] [address] PATHOLOGY RPT PROCEDURE Name: LAUREL HUTCHINS [facility] [id number] Admission: 06/28/18 Date of : 57 Discharge: Report #: [id number] Path Case #: [id number] . High risk 41-100 . Distant Recurrence Probability Comment: 01 In the clinical validation study, patients who were node- positive (1-3 nodes), with a Prosigna Score of 72 were in the high risk group. The high risk population averaged a 24% probability of distant recurrence at 10 years. . The Prosigna algorithm was used in retrospective analysis of the ABCSG-8 clinical trial which included more than 1400 patients with varying risks of distant recurrence. Please refer to Prosigna package insert for further information, including the graphic content of the retrospectively fitted model relating Prosigna Score to 10-year distant recurrence for node-positive (1-3 nodes) patients in the ABCSG-8 study. Clinical Validation Study 01 Prognosis for node-positive (1-3 nodes) breast cancer patients was determined based on the probability of distant recurrence(DR) for this patient population in the validation study ABCSG-8. This study analyzed 382 node-positive (1-3 nodes) samples using a prospectively defined analysis plan. The data shown in the table below are for post-menopausal women with hormone receptor-positive, node-positive (1-3 nodes), Stage II breast cancer that received 5 years of endocrine therapy. . Probability of DR Prespecified Patient Risk Group at 10 years for node-positive (1-3 nodes) Patients . ABCSG-8 Low Risk High Risk (95% CI) (95% CI) . 6% 24% (3%-12%) (19%-31%) . Test Information: 01 Background: The Prosigna(TM) Breast Cancer Prognostic Gene Signature Assay is an FDA approved assay which provides a risk category and numerical score, to assess a patient's risk of distant recurrence of disease at 10 years in postmenopausal women with node-negative (Stage I or II) or node-positive (Stage II), hormome receptor-positive (HR+) breast cancer. The Prosigna(TM) assay measures gene expression levels of RNA extracted from formalin-fixed paraffin-embedded (FFPE) breast tumor tissue previously diagnosed as invasive breast carcinoma. [address] [address] PATHOLOGY RPT PROCEDURE Name: LAUREL HUTCHINS Room: [facility].#: [id number] Admission: 06/28/18 Date of : 57 Discharge: Report #: [id number] Path Case #: [id number] Performance characteristics of the Prosigna(TM) assay have been established for postmenopausal women with hormone receptor positive early stage breast cancer treated with 5 years of adjuvant endocrine therapy. Performance with other treatment regimens or in other patient populations has not been established. The interpretation of Prosigna(TM) assay results (Prosigna(TM) Score, risk category) should be evaluated within the context of other clinicopathological factors, the patient's medical history and any other laboratory test results. Prosigna(TM) is not intended for diagnosis, to predict or detect response to therapy, or to help select the optimal therapy for patients. Methodology: The Prosigna(TM) assay is performed on RNA isolated from FFPE breast tumor tissue. It simultaneously measures the expression levels of 50 genes used in PAM50 classification algorithm, 8 housekeeping genes used for signal normalization, 6 positive controls, and 8 negative controls in a single hybridization reaction, using nucleic acid probes designed specifically to those genes. References: 1. Package Insert: Prosigna Breast Cancer Prognostic Gene Signature Assay; v1, created 2013-04; REF [id number]. 2. Brittany Castellanos, et al, Predicting risk for late metastasis: The PAM50 risk of recurrence (ROR) score after 5 years of endocrine therapy in postmenopausal women with HR+ early breast cancer: A study on 1,478 patients for the ABCSG-8 trial. Bibi Oncol 2013; 24 (Supplement 3): [id number]. 3. Niranjan Tierney et al, Supervised Risk Predictor of Breast Cancer Based on Intrinsic Subtypes. J. Clin Onc v27 No.8 (2009):6310-2413. Director Review Antonieta Linares, PhD, [facility] 01 Director, Molecular Genetics [facility] [place], [place] Microdissection Performed Completed Image . 01 . . PROSIGNA ID #: [id number] Tumor Size: > 2cm Lymph Nodes: node-positive (1-3 nodes) Assay Description: The Prosignar breast cancer gene signature assay measures the expression of 58 different genes to report the Prosigna Score, which is used along with the patient's palma status to assign a risk classification defined by prespecified Prosigna Score cutpoints. The Prosigna Score is derived from a proprietary algorithm based on the PAM50 gene signature1, and includes information on the [place] [address] PATHOLOGY RPT PROCEDURE Name: LAURLE HUTCHINS Room: [facility] M.R.#: [id number] Admission: 06/28/18 Date of : 57 Discharge: Report #: [id number] Path Case #: [id number] tumor's gene expression with four prototypical PAM50 molecular profiles, as well as proliferation and the pathologic tumor size. . Patient Prosigna Score*: 72 High Risk * The Prosigna Score ranges from 0 through 100 and correlates with the probability of distant recurrence (DR) in the tested population. Risk classification is provided to guide the interpretation of the Prosigna Score using cutoffs related to clinical outcome. Prosigna Scores greater than 80 are considered high risk, and the score is not reported. . . Clinical Trial Results: Probability of Distant Recurrence In the clinical validation study, patients who were node-positive (1-3 nodes), with a Prosigna Score of 72 were in the high risk group. The high risk population averaged a 24% probability of distant recurrence at 10 years. The Prosigna algorithm was used in retrospective analysis of the ABCSG-8 clinical trial which included more than 1400 patients with varying risks of distant recurrence. The retrospectively fitted model relating Prosigna Score to 10-year distant recurrence for node-positive (1-3 nodes) patients in the ABCSG-8 study is displayed below. . . For more information, visit [employer] or [email or web address]-mail [email or web address] . Due to small sample size of patients with scores greater than 80 in the clinical validation study, the exact relationship of the Prosigna Score to probability of DR could not be established with a retrospective model fitting. Data apply to patients being treated with endocrine therapy for 5 years as in the tested patient population. See Package Insert for further information on therapeutic regimens and tested patient population. It is unknown whether these findings can be extended to other patient populations or treatment schedules. Average DR rate observed in ABCSG-8 for patients within 10 Prosigna Score units. . . ID #: [id number] Tumor Size: > 2cm Lymph Nodes: node-positive (1-3 nodes) Clinical Trial Results: Clinical Validation Study: Prognosis for node-positive (1-3 nodes) breast cancer patients was determined based on the probability of distant recurrence (DR) for this patient population in the validation study ABCSG-8. This study analyzed 382 node-positive (1-3 nodes) samples using a prospectively defined analysis plan. The data shown are for post-menopausal women with hormone receptor-positive, node-positive (1-3 nodes), Stage II breast cancer that received 5 years of endocrine therapy.* . Probability of DR for Node-positive Prespecified Patient Risk Group [address] [address] PATHOLOGY RPT PROCEDURE Name: LAUREL HUTCHINS Room: [facility]..#: [id number] Admission: 06/28/18 Date of : 57 Discharge: Report #: [id number] Path Case #: [id number] (1-3 nodes) Patients ABCSG-8 Low Risk (95% CI) High Risk (95% CI) 6% (3%-12%) 24% (19%-31%) . . . DRFS BY Risk Group for Node-positive (1-3- nodes) Patients The Prosigna Score classifies Node-positive (1-3 nodes) Patients as low or high-risk based on prespecified thresholds that indicate probability of DR at 10 years. In the ABCSG-8 clinical validation study, the probability of DR at 10 years for low-risk, Node-positive (1-3 nodes) Patients was 6% (95% CI: 3%-12%), while the probability of DR at 10 years for high-risk patients was 24% (95% CI: 19%-31%). . For more information, visit [email or web address] or [email or web address]-mail [email or web address] * See Package Insert for further information on therapy regimens and tested patient population. It is unknown whether these findings can be extended to other patient populations or treatment schedules. REFERENCES: 1. Niranjan KEITH, et al., Supervised Risk Predictor of Breast Cancer Based on Intrinsic Subtypes. Journal of Clinical Oncology, v27 No. 8 2008) 1189-9440 2. Prosigna Package Insert 3. Jasmin Kaiser et al., P2, Clinical Validation of the PAM50 risk of recurrence (ROR) score for predicting residual risk of distant recurrence (DR) after endocrine therapy in postmenopausal women with HR+ early breast cancer (EBC): An ABCSG study, [facility] 2012. . A complete copy of the report is on file. . Professional services performed by [employer] at [address], [place] [address]. Technical services performed by [employer] at [address], [place] [address]. . ([facility] 07/21/2018) . [place]/07/21/2018 Addendum Electronically Signed by Matt Cho MD, Pathologist . 02 Electronically signed: . Matt Cho MD, Pathologist NPI- [id number] . 01 Gross description: . A. The specimen is received in formalin, labeled "Stevie Hernandez breast mass lumpectomy, long lateral, short superior". Received is a 20 g lumpectomy specimen oriented with a short suture designating the superior margin and a long suture designating the lateral margin. [place] [address] PATHOLOGY RPT PROCEDURE Name: LAUREL HUTCHINS BOO Room: [facility]#: [id number] Admission: 06/28/18 Date of : 57 Discharge: Report #: [id number] Path Case #: [id number] measures 4.6 cm from superior to inferior, 3.6 cm from anterior to posterior, and 3.1 cm from medial to lateral. There is a localization wire present within the specimen container, however, is not attached to the specimen. The specimen is inked as follows: Superior-blue, inferior-green, lateral-red, medial-yellow, anterior-black, posterior-orange. Sectioning reveals bright yellow, lobulated to white-shrestha, fibrous cut surfaces throughout, with the fibrous tissue encompassing approximately 15% of the specimen. A previous biopsy site is not grossly distinct. The specimen is submitted entirely from superior to inferior aspects in cassettes A1 through A26, with sections of cassettes A2 through A21 additionally bisected into anterior and posterior aspects. The cold ischemic time is 1 hour and 16 minutes. The total formalin fixation time is 32 hours and 41 minutes. . B. The specimen is received in formalin, labeled "Laurel Hutchins, left sentinel node". Received is a segment of bright yellow lobulated tissue measuring 1.6 x 1.4 x 1.0 cm in greatest dimensions. Dissection and palpation of the specimen reveals a single lymph node measuring 1.1 cm in maximum dimensions. The lymph node is bisected and entirely submitted in cassette B1. Immunohistochemical stains are ordered. . C. The specimen is received in formalin, labeled "Laurel Hutchins, medial left breast mass, long lateral, short superior". Received is a 10 g lumpectomy specimen oriented with a short suture designating the superior margin and a long suture designating the lateral margin. The specimen measures 4.6 cm from superior to inferior, 2.8 cm from medial to lateral, and 2.2 cm from anterior to posterior. The specimen is inked as follows: Superior-blue, inferior-green, lateral-red, medial-yellow, anterior-black, posterior-orange. Sectioning reveals white-shrestha, fibrous to bright yellow, lobulated cut surfaces throughout, with the fibrous tissue encompassing approximately 95% of the specimen. The specimen is submitted entirely from superior to inferior aspects in cassettes C1 through C14. The cold ischemic time is 1 hour and 1 minute. The total formalin fixation time is 32 hours and 41 minutes. . D. The specimen is received in formalin, labeled "Laurel Hutchins, lateral left breast mass, long lateral, short superior". Received is an 11 g lumpectomy specimen oriented with a short suture designating the superior margin, and a long suture designating the lateral margin. The specimen measures 4.5 cm from superior to inferior, 3.0 cm from anterior to posterior, and 2.4 cm from medial to lateral. The specimen is inked as follows: Superior-blue, inferior-green, lateral-red, medial-yellow, anterior-black, posterior-orange. Sectioning reveals bright yellow, lobulated cut surfaces throughout with a slight amount of hemorrhage present near the superior/anterior aspect. No distinct nodules or lesions are noted grossly. The specimen is submitted entirely from superior to inferior aspects in cassettes D1 through D14. The cold ischemic time is 11 minutes. The total formalin fixation time is 32 hours and 41 minutes. (CAA; 06/29/2018) [place] [address] PATHOLOGY RPT PROCEDURE Name: LAUREL HUTCHINS Room: [facility]#: [id number] Admission: 06/28/18 Date of : 57 Discharge: Report #: [id number] Path Case #: [id number] QAC/QAC . 02 Pathologist provided ICD-10: C50.912, D05.12, C77.3 . 02 CPT . 780200, 259983, 778761, 557728, R43117 Specimen Comment: A courtesy copy of this report has been sent to Specimen Comment: [phone], , . Specimen Comment: Report sent to ,DR VICENTE / DR ROBERTS Specimen Comment: A duplicate report has been generated due to demographic updates. Performed at: [address], [place], [place] [id number] MD Bulmaro Chaudhary MD Phone: [phone] Performed at: 02 [facility] [address], [place], [place] [id number] MD Matt Cho MD Phone: [phone]
== END | disposition home or self-care (01) ==
LOC: M.SUR 06:57
PROVIDERS: Surgery
DX: C50.412 Malignant neoplasm of upper-outer quadrant of left female breast (principal); C77.3 Secondary and unspecified malignant neoplasm of axilla and upper limb lymph nodes; I10 Essential (primary) hypertension; Z88.8 Allergy status to other drugs, medicaments and biological substances; Z79.899 Other long term (current) drug therapy; Z91.041 Radiographic dye allergy status; Z90.710 Acquired absence of both cervix and uterus; Z98.890 Other specified postprocedural states; Z82.49 Family history of ischemic heart disease and other diseases of the circulatory system

== ENCOUNTER → 2018-08-03 | Day surgery (SDC) | payer OTHER ==
[~2018-08-03] MED LIST changes: +ALLEGRA ALLERG180 MG PO; -ALLEGRA180 MG PO; +DILTIAZEM 24HR240 M2 PO; -DILTIAZEM 24HR240 MG PO; +KLOR-CON 1010 MEQ PO; +ZADITOR5 M1 OPHTHALMIC
[2018-08-03 13:49] LABS: HEMATOCRIT 40.5 % (37.0-47.0); HEMOGLOBIN 13.5 gm/dL (12.0-15.0); MCH 31.2 pg (26.0-34.0); MCHC 33.2 g/dL (28.0-37.0); MCV 93.9 fL (80.0-100.0); MPV 7.7 fl. (7.2-11.1); RBC 4.31 mil/uL (4.20-5.00); RDW-CV 13.3 % (10.5-14.5); WBC 7.6 thou/uL (4.0-11.0)
[2018-08-03 13:56] LABS: CALCIUM 9.3 mg/dL (8.5-10.1); CREATININE 0.7 mg/dL (0.6-1.3); POTASSIUM 3.3 mmol/L (3.5-5.1)
--- NOTE | 2018-08-05 12:58 | OP ---
[address] [address] OPERATIVE REPORT Name: OLIVERIO HUTCHINS Room: [facility].#: [id number] Admission: 08/03/18 Attend Phys: Ashlee Carter DO Discharge: Date of : 57 Report #: [id number] THIS REPORT FOR: //name// CC: Ashlee Peñaloza DATE OF SERVICE: 08/03/2018 PREOPERATIVE DIAGNOSES: Left breast invasive ductal carcinoma with positive margins after lumpectomy and need for chemo port for chemotherapy. POSTOPERATIVE DIAGNOSES: Left breast invasive ductal carcinoma with positive margins after lumpectomy and need for chemo port for chemotherapy. FINDINGS: Status post left breast lumpectomy with a well-defined lumpectomy cavity. There was still at least 1 cm margin on the lateral edge, which we were able to take. Posterior margin was taken all the way to the pectoralis fascia. SURGEON: Ashlee Carter DO. COSURGEON: Reinier Ramirez DO. HEALTH EQUIPMENT SERVICER: Claudia Byrd, PGY1. PROCEDURE PERFORMED: Left breast reexcision for lateral margin and posterior margin and a right internal jugular ultrasound and fluoroscopy guided chemo port placement with surgeon interpretation of images. ANESTHESIA: General LMA and local. ESTIMATED BLOOD LOSS: Overall, was 25 mL. SPECIMENS: Left breast lateral margin, left breast posterior margin and fluoroscopy pictures. COMPLICATIONS: None. CONDITION: Stable. DISPOSITION: PACU to home. HISTORY OF PRESENT ILLNESS: The patient is a very pleasant 62-year-old female who is well known to me after being diagnosed with left breast cancer. She had previously undergone a left breast wire localized lumpectomy and sentinel lymph node dissection. Unfortunately, our final lumpectomy specimen was possibly positive for margins on the lateral and the posterior aspect. [place] [address] OPERATIVE REPORT Name: OLIVERIO HUTCHINS Room: [facility]#: [id number] Admission: 08/03/18 Attend Phys: Ashlee Carter DO Discharge: Date of : 57 Report #: [id number] sentinel lymph node was positive and she is now in need of chemotherapy and a chemo port. Risks and benefits of surgery were discussed with her in detail. She was offered either reexcision for margins or mastectomy. She indicated that she would like to try to obtain negative margins, but that she was okay if we needed to move forward with mastectomy as well. The patient understood all the risks and benefits and agreed to proceed. DESCRIPTION OF PROCEDURE: The patient was brought to the operating room. She was laid supine on the operating room table. SCDs were placed to bilateral lower extremities. Ancef was given in the perioperative period. General LMA anesthesia was induced by anesthesia without difficulty. The left breast was prepped and draped in standard sterile fashion. Timeout was performed to verify patient and procedure. 10 mL of 0.5% Marcaine were injected in the previous lumpectomy incision. Incision was reopened using a 15 blade. Cautery was used for hemostasis. Then, using very gentle blunt dissection, we were able to immediately enter the seroma cavity. A small amount of seroma was suctioned away. The entirety of the cavity was then opened to the incision. There were very clearly defined edges of the previous lumpectomy. There was at least 1 cm of tissue on the lateral aspect of the breast. This area was grasped using an Allis clamp and was then transected right under the skin surface using a 15 blade until we reached the posterior margin. There was one area, which I believe was where the wire localization occurred where the skin was tented into the subcutaneous tissue, a small section of skin was taken here. This lateral margin was then marked in the superior and lateral direction and was handed off. At this point, we had papers and margins on the lateral aspect of the breast. I then turned my attention to the posterior margin. This area was also grasped using an Allis clamp, was gently elevated and was transected from the surrounding tissues utilizing cautery. I continued the depth to the posterior margin until I did reach the pectoralis fascia and then completely excised the margin. Margin was again marked in the superior and lateral direction and was handed off for permanent pathology. Hemostasis was assured within the wound. Wound was irrigated with 50 mL of normal saline until clear. It was filled with FloSeal. The incision was then closed using 3-0 Vicryl in inverted interrupted fashion. Skin was closed with running 4-0 Monocryl. The area of our small skin skyler was closed with 1 stitch of a 4-0 Monocryl. A total of 30 mL of 0.5% Marcaine were used to anesthetize the wounds. Wounds were then cleansed and covered with Mastisol, Steri-Strips, 4 x 4's, and a Tegaderm. The patient's drapes were then completely removed. The right neck and chest were then prepped and draped in the standard sterile fashion. Timeout was again performed to verify patient and procedure. Ultrasound was used to visualize the right IJ and it appeared to be patent and healthy. A 10 mL of 0.5% Marcaine were injected in this area. Then, using ultrasound guidance, the right IJ was accessed with one pass of the needle. Excellent flow was obtained. Wire passed without difficulty. Needle was removed. Wire was again visualized in the internal jugular utilizing the ultrasound. Fluoroscopy was then brought on to the field and the wire was visualized in the superior vena cava. Infraclavicular pocket [address] [address] OPERATIVE REPORT Name: OLIVERIO HUTCHINS Room: [facility].#: [id number] Admission: 08/03/18 Attend Phys: Ashlee Carter DO Discharge: Date of : 57 Report #: [id number] was then created using a 15 blade. Cautery was used for hemostasis and adequately sized pocket was then created using a combination of blunt and cautery dissection. An 11 blade was used to make a skyler at the site of our wire insertion. The breakaway dilator was passed without difficulty. The dilator and the wire were then removed. Chemo port tubing was then introduced through the breakaway catheter without issue. Breakaway catheter was then removed. Tubing was then tunneled into our previously created pocket without difficulty. Fluoroscopy was returned onto the field and the chemo port tubing was withdrawn until the tip of the catheter was visualized within the superior vena cava. It was then connected to our subcutaneous port. Port was accessed. There was excellent draw and flush from the port. Flush was vigorously irrigated using injectable saline. It was then locked with 3 mL of premixed heparin flush. Port was then sutured into place using 2 stitches of 3-0 Prolene. Our incision was then closed with 3-0 Vicryl and 4-0 Monocryl. A total of 20 mL of 0.5% Marcaine were used to anesthetize the wound. Wound was then cleansed and covered with Mastisol, Steri-Strips, 4 x 4's, and a Tegaderm. The patient was then allowed to awake from the anesthesia, was extubated and transported to the recovery room with no further difficulties. Counts were correct x 2 at the conclusion of the case. <ELECTRONICALLY SIGNED> By: Ashlee Carter DO 08/05/18 1258 1655 [id number] Carter DO /nt
--- NOTE | 2018-08-11 12:05 | PATH ---
[address] [address] PATHOLOGY RPT PROCEDURE Name: OLIVERIO HUTCHINS Room: [facility]..#: [id number] Admission: 08/03/18 Date of : 57 Discharge: Report #: [id number] Path Case #: [id number] [facility] Accession Number: [id number] . 01 Material submitted: . PART A: LEFT BREAST LATERAL MARGIN, SHORT SUPERIOR, LONG LATERAL PART B: LEFT BREAST POSTERIOR MARGIN, SHORT SUPERIOR, LONG LATERAL . 01 Clinical history: . Malignant neoplasm upper outer quadrant left breast . 02 Diagnosis: A LEFT BREAST LATERAL MARGIN: - RESIDUAL DUCTAL ADENOCARCINOMA, INTERMEDIATE GRADE, SPANNING 2 MM, ADJACENT TO CHANGES OF RECENT PRIOR SURGERY, WITH FOCAL INVOLVEMENT OF LATERAL MARGIN (0.3 MM SPAN). SEE COMMENT. . B. LEFT BREAST POSTERIOR MARGIN: - RESIDUAL DUCTAL ADENOCARCINOMA, INTERMEDIATE GRADE, SPANNING 0.4 MM, ADJACENT TO CHANGES OF RECENT PRIOR SURGERY, WITH ALL FINAL MARGINS FREE OF INVOLVEMENT AND CLOSEST (POSTERIOR) LOCATED 5 MM AWAY. SEE COMMENT. LBQ/08/10/2018 . 02 Comment: A focus of residual infiltrating tumor is seen to span 2 mm in a finger-like fashion extending from the changes of prior surgery out to focally involve the final lateral margin where it spans 0.3 mm (A11). A focus of infiltrating tumor spanning 0.4 mm is adjacent to changes of prior surgery where it is located 5 mm away from the closest (posterior) surgical margin in B9. Prominent luminal calcifications and medial calcification of blood vessels is seen in non-neoplastic tissues of both specimens. . This patient had a left breast lumpectomy from around 06/28/2018, which showed ductal adenocarcinoma, intermediate grade, with involvement of margins ([id number] A and B). . Discussed with Dr. Carter on early afternoon of 08/10/2018. (ELIZABETH/db; 08/08/2018) . 02 Electronically signed: . Matt Cho MD, Pathologist NPI- [id number] . 01 Gross description: . A. The specimen is received in formalin, labeled "Oliverio Hutchins, left breast lateral margin, short superior, long lateral". Received is a 9 g lumpectomy specimen oriented with a [place] [address] PATHOLOGY RPT PROCEDURE Name: OLIVERIO HUTCHINS BOO Room: [facility]#: [id number] Admission: 08/03/18 Date of : 57 Discharge: Report #: [id number] Path Case #: [id number] margin and a long suture designating the lateral margin. The specimen measures 6.1 cm from superior to inferior, 3.1 cm from anterior to posterior, and 1.5 cm from medial to lateral. The specimen is inked as follows: Superior-blue, inferior-green, lateral-red, medial-yellow, anterior-black, posterior-orange. Sectioning reveals bright yellow, lobulated cut surfaces throughout with fat necrosis present, as well as a slight amount of fibrous tissue near the inferior margin. No distinct nodules or lesions are noted grossly. The specimen is submitted entirely from superior to inferior aspects in cassettes A1 through A14. The cold ischemic time is 1 minute. The total formalin fixation time is 27 hours and 25 minutes. . B. The specimen is received in formalin, labeled "Oliverio Hutchins, left breast posterior margin, short superior, long lateral". Received is an 11 g lumpectomy specimen oriented with a short suture designating the superior margin and a long suture designating the lateral margin. The specimen measures 4.7 cm from medial to lateral, 4.1 cm from superior to inferior, and 1.5 cm from anterior to posterior. The specimen is inked as follows: Superior-blue, inferior-green, lateral-red, medial-yellow, anterior-black, posterior-orange. Sectioning reveals bright yellow, lobulated cut surfaces throughout with a slight amount of fat necrosis. No distinct nodules or lesions are noted grossly. The specimen is submitted entirely from superior to inferior aspects in cassettes B1 through B17. The sections in cassettes B3 through B14 additionally bisected into medial and lateral aspects. The cold ischemic time is 6 minutes. The total formalin fixation time is 27 hours and 27 minutes. (CAA; 08/04/2018) QAC/QAC . 02 Pathologist provided ICD-10: C50.912 . 02 CPT . 257101, 918072 Specimen Comment: A courtesy copy of this report has been sent to Specimen Comment: [phone], . Specimen Comment: Report sent to / DR VICENTE Specimen Comment: A duplicate report has been generated due to demographic updates. Performed at: 01 [facility] [address], [place], [place] [id number] MD Bulmaro Chaudhary MD Phone: [phone] Performed at: 02 [facility] [address], [place], [place] [id number] MD Matt Cho MD Phone: [phone]
== END | disposition home or self-care (01) ==
LOC: M.SUR 07:21
PROVIDERS: Surgery
DX: C50.412 Malignant neoplasm of upper-outer quadrant of left female breast (principal); Z45.2 Encounter for adjustment and management of vascular access device; I10 Essential (primary) hypertension; Z98.890 Other specified postprocedural states; Z90.710 Acquired absence of both cervix and uterus; Z82.49 Family history of ischemic heart disease and other diseases of the circulatory system; Z88.8 Allergy status to other drugs, medicaments and biological substances

== ENCOUNTER → 2018-08-15 | Outpatient (CLI) | payer OTHER ==
[~2018-08-15] MED LIST changes: -ALLEGRA ALLERG180 MG PO; +ALLEGRA180 MG PO; -DILTIAZEM 24HR240 M2 PO; +DILTIAZEM 24HR240 MG PO; -KLOR-CON 1010 MEQ PO
--- NOTE | 2018-08-15 13:11 | 2DMMODE ---
[place] [address] 2 D/M-MODE ECHOCARDIOGRAM Name: OLIVERIO HUTCHINS Room: [facility]#: [id number] Admission: 08/15/18 Attend Phys: Cale Miner MD Discharge: Date of : 57 Date of Service: 08/15/18 1311 Report #: [id number] THIS REPORT FOR: //name// APPROVED REPORT Study performed: 08/15/2018 09:58:49 EXAM: Comprehensive 2D, Doppler, and color-flow Echocardiogram Patient Location: Out-Patient Status: routine BSA: 1.73 HR: 57 bpm BP: 140/70 mmHg Other Information Study Quality: Good Technically limited study due to post operative dressings. Indications Chemo 2D Dimensions IVSd: 11.35 (7-11mm) LVOT Diam: 20.34 (18-24mm) LVDd: 45.91 mm PWd: 9.91 (7-11mm) Ascending Ao: 27.22 (22-36mm) LVDs: 26.76 (25-40mm) Aortic Root: 27.67 mm Volumes Left Atrial Volume (Systole) LA ESV Index: 17.90 mL/m2 Aortic Valve AoV Peak Moy.: 0.84 m/s AO Peak Gr.: 2.80 mmHg LVOT Max P.46 mmHg AO Mean Gr.: 1.57 mmHg LVOT Mean P.07 mmHg LVOT Max V: 0.78 m/s AO V2 VTI: 17.65 cm LVOT Mean V: 0.47 m/s RAHUL (VTI): 3.23 cm2 LVOT V1 VTI: 17.54 cm Mitral Valve E/A Ratio: 1.32 MV Decel. Time: 171.97 [place] [address] 2 D/M-MODE ECHOCARDIOGRAM Name: OLIVERIO HUTCHINSN Room: [facility]#: [id number] Admission: 08/15/18 Attend Phys: Cale Miner MD Discharge: Date of : 57 Date of Service: 08/15/18 1311 Report #: [id number] MV E Max Moy.: 0.93 m/s MV PHT: 49.87 ms MVA (PHT): 4.41 cm2 TDI E/Lateral E': 8.45 E/Medial E': 9.30 Medial E' Moy.: 0.10 m/s Lateral E' Moy.: 0.11 m/s Pulmonary Valve PV Peak Moy.: 0.82 m/s PV Peak Gr.: 2.68 mmHg Left Ventricle The left ventricle is normal size. There is normal LV segmental wall motion. There is normal left ventricular wall thickness. Left ventricular systolic function is normal. The left ventricular ejection fraction is within the normal range. LVEF is 55-60%. The left ventricular diastolic function is normal. Right Ventricle The right ventricle is normal size. The right ventricular systolic function is normal. Atria The left atrium size is normal. The right atrium size is normal. Aortic Valve The aortic valve is normal in structure. Trace aortic regurgitation. There is no aortic valvular stenosis. Mitral Valve The mitral valve is normal in structure. There is no mitral valve regurgitation noted. No evidence of mitral valve stenosis. Tricuspid Valve The tricuspid valve is normal in structure. There is no tricuspid valve regurgitation noted. Pulmonic Valve The pulmonary valve is normal in structure. Mild pulmonic regurgitation. Great Vessels The aortic root is normal in size. IVC is normal in size and collapses >50% [place] [address] 2 D/M-MODE ECHOCARDIOGRAM Name: OLIVERIO HUTCHINS Room: [facility]#: [id number] Admission: 08/15/18 Attend Phys: Cale Miner MD Discharge: Date of : 57 Date of Service: 08/15/18 1311 Report #: [id number] Pericardium There is no pericardial effusion. <Conclusion> The left ventricle is normal size. There is normal left ventricular wall thickness. Left ventricular systolic function is normal. The left ventricular ejection fraction is within the normal range. LVEF is 55-60%. The left ventricular diastolic function is normal. The right ventricle is normal size. The left atrium size is normal. The aortic valve is normal in structure. Trace aortic regurgitation. There is no aortic valvular stenosis. The mitral valve is normal in structure. The tricuspid valve is normal in structure. IVC is normal in size and collapses >50% with inspiration. The aortic root is normal in size. There is no pericardial effusion. There is normal LV segmental wall motion. <ELECTRONICALLY SIGNED> By: Norm Guerrero MD, FACC 08/15/18 131 10 10 Norm Guerrero MD, FACC /INF
== END ==
LOC: M.CRD 09:43
DX: I51.7 Cardiomegaly (principal); C50.412 Malignant neoplasm of upper-outer quadrant of left female breast; Z17.0 Estrogen receptor positive status [ER+]

== ENCOUNTER 2018-09-05 06:17 | Inpatient (IN) | payer OTHER ==
[~2018-09-05] VITALS: Ht 165.1 cm; Wt 67.9 kg
--- NOTE | ~2018-09-05 | H ---
[address] [address] HISTORY AND PHYSICAL Name: OLIVERIO HUTCHINS Room: [address] M.R.#: [id number] Admission: 09/05/18 Attend Phys: Ashlee Carter DO Discharge: 09/06/18 Date of : 57 Report #: [id number] THIS REPORT FOR: //name// Please refer to the History and Physical performed in the physician's office. By: 0707Medical Records Staff ROSELINE /PHONG
[~2018-09-05 06:17] MED LIST changes: +ALLEGRA ALLERG180 MG PO; -ALLEGRA180 MG PO; +DILTIAZEM 24HR240 M2 PO; -DILTIAZEM 24HR240 MG PO; +KLOR-CON 1010 MEQ PO
[2018-09-05 06:44] LABS: HEMATOCRIT 41.1 % (37.0-47.0); HEMOGLOBIN 13.9 gm/dL (12.0-15.0); MCH 31.5 pg (26.0-34.0); MCHC 33.8 g/dL (28.0-37.0); MCV 93.2 fL (80.0-100.0); MPV 7.8 fl. (7.2-11.1); RBC 4.41 mil/uL (4.20-5.00); RDW-CV 13.3 % (10.5-14.5); WBC 7.8 thou/uL (4.0-11.0)
[2018-09-05 06:47] LABS: CALCIUM 9.6 mg/dL (8.5-10.1); CREATININE 0.8 mg/dL (0.6-1.3); POTASSIUM 3.2 mmol/L (3.5-5.1)
[2018-09-05 11:49] VITALS: BP 144/55
--- NOTE | 2018-09-05 12:17 | NUR ---
PT ADMITTED TO UNIT. PT IS ALERT AND ORIENTED. PT IS ON 2 LITERS O2 BY NASAL CANNULA. PT IS SLEEPY AND WANTS TO REST. PT DENIES ANY N/V. SCOPOLAMINE PATCH BEHIND LT EAR IN PLACE. FALL RISK PRECAUTIONS IN PLACE. WILL CONTINUE TO MONITOR.
[2018-09-05 16:27] VITALS: BP 148/63
--- NOTE | 2018-09-05 17:05 | NUR ---
PT REMAINED ALERT AND ORIENTED. PT IS ON 2 LITERS O2. PT DENIES ANY PAIN OR N/V. PT PREFERS JUST TYLENOL FOR PAIN. TYLENOL GIVEN SCHEDULED THIS SHIFT. PT IS TIRED AND JUST WANTS TO SLEEP. DRESSING DRY AND INTACT TO CHEST. LEEANN DRAINS IN PLACE WITH MINIMAL DRAINAGE AND WILL BE EMPTIED THIS SHIFT. FALL RISK PRECAUTIONS IN PLACE. HOURLY ROUNDING COMPLETED. WILL CONTINUE TO MONITOR.
[2018-09-05 19:20] VITALS: BP 115/54
--- NOTE | 2018-09-05 22:26 | NUR ---
PT ASSESSMENT COMPLETE, REFER TO COMPUTER CHARTING FOR FURTHER DETAILS. VSS. PT DENIES PAIN, NAUSEA, SOA. FALL PRECAUTIONS IN PLACE, CLWR. HOURLY ROUNDING FOR PT SAFETY
[2018-09-06 00:51] VITALS: BP 113/46
[2018-09-06 04:20] VITALS: BP 141/67
--- NOTE | 2018-09-06 06:18 | NUR ---
PT HAS HAD LITTLE TO NO PAIN T/O THIS SHIFT. PRN TYLENOL WORKING WELL PER PT. NO NEW OCNCERNS. FALL PRECAUTIONS IN PLACE. HOURLY ROUNDING FOR SAFETY. CLWR.
[2018-09-06 07:50] VITALS: BP 135/64
--- NOTE | 2018-09-06 08:23 | OP ---
[address] [address] OPERATIVE REPORT Name: OLIVERIO HUTCHINS Room: [address] IN M.R.#: [id number] Admission: 09/05/18 Attend Phys: Ashlee Carter DO Discharge: Date of : 57 Report #: [id number] THIS REPORT FOR: //name// CC: Ashlee Peñaloza DATE OF SERVICE: 09/05/2018 PREOPERATIVE DIAGNOSIS: Left breast cancer. POSTOPERATIVE DIAGNOSIS: Left breast cancer. FINDINGS: Left breast with previous lumpectomy incision. There was a small seroma in the area of the previous lumpectomy. The previous lumpectomy did approach the pectoralis and there was some pectoralis fascia, which had been drawn up into the lumpectomy cavity site. SURGEON: Ashlee Carter DO COSURGEON: Ruben Mcguire, PGY2 SINGE MACHINE OPERATOR: Brielle Freitas, PGY-1 PROCEDURE PERFORMED: Bilateral simple mastectomy. ANESTHESIA: LMA and local. ESTIMATED BLOOD LOSS: 30 mL. DRAINS: Bilateral 15-Macanese LEEANN drain. SPECIMENS: Bilateral breast. COMPLICATIONS: None. CONDITION: Stable. DISPOSITION: PACU to the floor. HISTORY OF PRESENT ILLNESS: The patient is a very pleasant 62-year-old female who is well known to me after a recent diagnosis of left breast cancer. On all of our initial radiological studies, the cancer appeared to be small and well contained. She underwent a lumpectomy with a sentinel lymph node biopsy. Unfortunately, on the lumpectomy, we did have positive margins and the sentinel lymph node was positive. She then returned to the Operating Room for placement of a chemo port and reexcision of the [place] [address] OPERATIVE REPORT Name: OLIVERIO HUTCHINS Room: [address] IN M.R.#: [id number] Admission: 09/05/18 Attend Phys: Ashlee Carter DO Discharge: Date of : 57 Report #: [id number] Unfortunately, the reexcision was still positive. After discussion with Oncology and with the patient, she then decided to proceed with bilateral mastectomy. Risks were discussed in detail and the patient agreed to move forward. DESCRIPTION OF PROCEDURE: The patient was brought to the Operating Room. She was laid supine on the operating room table. SCDs were placed on bilateral lower extremities. Ancef was given in the perioperative period. General LMA anesthesia was induced by anesthesia without difficulty. Bilateral breasts and chest were prepped and draped in standard sterile fashion. Timeout was performed to verify the patient and procedure. I began by marking out the sternum, the clavicles, the inframammary fold and the latissimus dorsi. On the left breast, there was a lumpectomy incision just on the left periareolar area, but there was also an area where we had gotten very close to the skin with our previous lumpectomy site. These areas were marked out to be included in our mastectomy incision. Bilateral elliptical incisions were then marked out. We started with the right side, which was the noncancerous side. A 30 mL of 0.5% Marcaine were injected in the area of the planned incision. Incision was made with a 10 blade. PlasmaBlade was used for hemostasis. Flaps were then created. We began initially by moving to the right clavicle, then to the sternum and then inferiorly to the inframammary fold and laterally to the latissimus dorsi. All of this dissection was done carefully with the PlasmaBlade. Breast tissue was gently elevated using Allis clamps and was then dissected from the underlying pectoralis fascia using the PlasmaBlade. Specimen was marked in the superior and lateral direction, was handed off for permanent pathology. Hemostasis was assured within this wound. This wound was then gently packed with a moistened lap while we turned our attention to the left breast. We proceeded in the same fashion here. A 30 mL of 0.5% Marcaine were injected in the area of the planned incision. Incision was made with a 10 blade. PlasmaBlade was used for hemostasis. Flaps were created superiorly to the clavicle, laterally to the latissimus dorsi, inferiorly to the inframammary fold and medially to the sternum. Breast tissue was gently elevated off the underlying pectoralis fascia with Allis clamps and was dissected free using a PlasmaBlade. Of note, our lumpectomy site did have a small seroma. The margins of the previous lumpectomy had gone all the way to the pectoralis fascia and some of this pectoralis fascia had been drawn up into our lumpectomy site. Some of the pectoralis fibers were taken with our breast tissue today and I did james the area of the previous lumpectomy site with 2 clips in case the patient needs future radiation. Specimen was marked in the superior lateral direction and was handed off for permanent pathology. Hemostasis was assured here. Both wounds were then copiously irrigated until clear. FloSeal was placed within each of the pockets. Bilateral 15-Macanese LEEANN drains were brought out through for inferior flap. Both drains were sutured into place using 3-0 nylon. Both wounds were then closed in a layered fashion using deep and superficial stitches of 3-0 Vicryl in inverted interrupted fashion. Skin wounds were closed with running 4-0 Monocryl. Skin wounds were then cleansed [place] [address] OPERATIVE REPORT Name: OLIVERIO HUTCHINS Room: [address] IN M.R.#: [id number] Admission: 09/05/18 Attend Phys: Ashlee Carter DO Discharge: Date of : 57 Report #: [id number]. Drains were covered with 4 x 4s and a Tegaderm. The patient was then allowed to awaken from anesthesia, was extubated and transported to the recovery room with no further difficulties. Surgical bra was placed in the operating room. Counts were correct x 2 at the conclusion of the case. <ELECTRONICALLY SIGNED> By: Ashlee Carter DO 09/06/18 0823 1037 [id number] Carter DO /nt
[2018-09-06 09:51] VITALS: BP 135/64
[2018-09-06 10:53] VITALS: BP 135/64
--- NOTE | 2018-09-06 11:09 | NUR ---
SPOKE TO THE PATIENT TO DISCUSS HER HOME SITUATION, DISCHARGE PLANNING, AND TO INFORM OF THE ROLE OF CM. PATIENT ALERT, ORIENTED, AND INDEPENDENT WITH ADL'S. PATIENT USES 0 DME. PATIENT HAS NO HX OF HH OR SNF AND PLANS TO RETURN HOME AT D/C. PATIENT TO D/C TODAY AND INFORMS THAT SHE IS OPEN TO HH WITH [facility]. D/C DIRECTOR OF AUTOMATION SPOKE TO RODNEY WITH [facility] TO INFORM OF THE REFERRAL FOR HH AND FAXED THE PATIENT'S FACESHEET, H&P, AND D/C ORDERS. CM WILL REMAIN AVIALABLE TO ASSIST AND FOLLOW NEEDED.
--- NOTE | 2018-09-06 11:39 | NUR ---
ASSUMED CARE OF PATIENT AT APPROX 0730. ALERT AND ORIENTED X4. ASSESSMENT COMPLETED AND CHARTED. VSS ON ROOM AIR. NO COMPLAINTS OF PAIN, NAUSEA, OR SOA. INCISIONS SHOW NO SIGNS OF INFECTIONS, DRAINAGE OR DEHISCENCE. SURGICAL BRA IN PLACE. LEEANN DRAINS IN PLACE AND DRAINING WELL. 75 OUT OF LEFT DRAIN. 20 OUT OF RIGHT. PATIENT DISCHARGED WITH HOME HEALTH AT 1039 WITH ALL PERSONAL BELONGINGS AND DISCHARGE INSTRUCTIONS.
--- NOTE | 2018-09-09 10:08 | PATH ---
[address] [address] PATHOLOGY RPT PROCEDURE Name: LAUREL HUTCHINS Room: [address] IN M.R.#: [id number] Admission: 09/05/18 Date of : 57 Discharge: 09/06/18 Report #: [id number] Path Case #: [id number] [facility] Accession Number: [id number] . 01 Material submitted: . PART A: RIGHT BREAST PART B: LEFT BREAST . 01 Clinical history: . Infiltrating ductal carcinoma . 02 Diagnosis: A. Right breast; short superior, long lateral: - Benign breast including skin/nipple with scattered luminal calcifications and mild chronic inflammation, negative for atypia. . B. LEFT BREAST; short superior, long lateral: - FOCAL RESIDUAL DUCTAL ADENOCARCINOMA, INTERMEDIATE GRADE, SPANNING LESS THAN 1 MM ADJACENT TO PRIOR BIOPSY CAVITY, WITH ALL SURGICAL MARGINS FREE OF INVOLVEMENT AND CLOSEST (UNKNOWN) LOCATED AT LEAST 2.5 MM AWAY. SEE COMMENT. LBQ/09/08/2018 . 02 Comment: The following synoptic data updates all prior results from the initial core biopsy, subsequent lumpectomy with sentinel lymph node and margins and subsequent additional lateral and posterior margins ([id number], [id number] and [id number]). . SYNOPTIC FOR INVASIVE CARCINOMA OF THE BREAST . Procedure ___ Total mastectomy Specimen Laterality ___ Left + Tumor Site: Invasive Carcinoma + ___ Lower outer quadrant Tumor Size ___ Greatest dimension of largest invasive focus >1 mm: At least 25 mm Histologic Type ___ Invasive ductal carcinoma Histologic Grade (Clifford Histologic Score) Glandular (Acinar)/Tubular Differentiation ___ Score 3 (<10% of tumor area forming glandular/tubular structures) Nuclear Pleomorphism ___ Score 2 (cells larger than normal with open vesicular nuclei, visible nucleoli, and moderate variability in both size and shape) [place] [address] PATHOLOGY RPT PROCEDURE Name: LAUREL HUTCHINS Room: [address] IN M.R.#: [id number] Admission: 09/05/18 Date of : 57 Discharge: 09/06/18 Report #: [id number] Path Case #: [id number] ___ Score 1 (=3 mitoses per mm2) Overall Grade ___ Grade 2 (scores of 6 or 7) + Tumor Focality + ___ Single focus of invasive carcinoma . Ductal Carcinoma In Situ (DCIS) ___ Present (see comment) + ___ Negative for extensive intraductal component (EIC) + Size (Extent) of DCIS + Estimated size (extent) of DCIS (greatest dimension using gross and microscopic evaluation): at least 15 mm + Architectural Patterns + ___ Comedo + ___ Cribriform + ___ Solid + Nuclear Grade + ___ Grade III (high) + Necrosis + ___ Present, central (expansive "comedo" necrosis) + Lobular Carcinoma In Situ (LCIS) + ___ No LCIS in specimen . Margins Invasive Carcinoma Margins ___ Uninvolved by invasive carcinoma Distance from closest margin: At least 2.5 mm Specify closest margin: Undetermined ___ Cannot be determined: Single focus identified in section taken from biopsy cavity without relationship to margins present . Regional Lymph Nodes (see comment) ___ Involved by tumor cells Number of Lymph Nodes with Macrometastases (>2 mm): 1 + Size of Largest Metastatic Deposit: 3 mm + Extranodal Extension: + ___ Present . Treatment Effect ___ No known presurgical therapy + Lymphovascular Invasion + ___ Present (only in prior lumpectomy specimen) + Dermal Lymphovascular Invasion + ___ Not identified . PATHOLOGIC STAGE CLASSIFICATION (pTNM, AJCC 8TH EDITION) Primary Tumor (Invasive Carcinoma) (pT) ___ pT2: Tumor >20 mm but less than or equal to 50 [place] [address] PATHOLOGY RPT PROCEDURE Name: LAUREL HUTCHINSN Room: [address] IN [facility].#: [id number] Admission: 09/05/18 Date of : 57 Discharge: 09/06/18 Report #: [id number] Path Case #: [id number] Regional Lymph Nodes (pN) Modifier ___ (sn): Brandt node evaluated. Category (pN) ___ pN1a: Metastases in 1 to 3 axillary lymph nodes, at least 1 metastasis larger than 2.0 mm . + Additional Pathologic Findings + Specify: Focal atypical ductal hyperplasia . + Ancillary Studies Performed previously ([id number] A3): ER 95%, IA 60%, Her2 equivocal with FISH negative, Ki-67 10% . + Microcalcifications + ___ Present in invasive carcinoma + ___ Present in non-neoplastic tissue + ___ Other (specify): Medial calcification of blood vessels + Clinical History: See prior reports . The mastectomy specimen contains only a single focus of residual ductal carcinoma spanning less than 1 mm and identified in B3 where its relationship to a margin is not known but is no closer than 2.5 mm to any tissue edge. The synoptic data is taken largely from results of prior surgeries and the current breast specimen/mastectomy contains no residual high grade DCIS. (ELIZABETH/db; 09/07/2018) . 02 Electronically signed: . Matt Cho MD, Pathologist NPI- [id number] . 01 Gross description: . A. The specimen is received in formalin, labeled "Laurel Hutchins, right breast, short superior, long lateral". Received is a 406 g mastectomy specimen oriented with a short suture designating the superior aspect and a long suture designating the lateral aspect. The specimen measures 13.1 cm from medial to lateral, 12.9 cm from superior to inferior, and 5.1 cm from anterior to posterior. The anterior aspect displays an attached ellipse of skin measuring 11.4 x 4.7 cm with a centrally-located, everted nipple and areolar complex, measuring 1.2 x 1.1 and 3.1 x 2.5 cm, respectively. The specimen is inked as follows: Superior/anterior-blue, inferior/anterior-green, posterior-black. Sectioning reveals bright yellow fibrofatty cut surfaces throughout, with the fibrous tissue encompassing approximately 20% of the specimen. No distinct nodules or lesions are noted grossly. The specimen is submitted representatively as follows: . A1 perpendicular [place] [address] PATHOLOGY RPT PROCEDURE Name: LAUREL HUTCHINS Room: [address] IN [facility].#: [id number] Admission: 09/05/18 Date of : 57 Discharge: 09/06/18 Report #: [id number] Path Case #: [id number] A2 upper inner quadrant A3 lower inner quadrant A4 lower outer quadrant A5 upper outer quadrant A6 central aspect posterior to nipple. . B. The specimen is received in formalin, labeled "Laurel Hutchins, left breast, short superior, long lateral". Received is a 448 g mastectomy specimen oriented with a short suture designating superior aspect and a long suture designating the lateral aspect. The specimen measures 15.3 cm from superior to inferior, 14.3 cm from medial to lateral, and 4.7 cm from anterior to posterior. The anterior aspect displays an attached ellipse of skin measuring 13.6 x 6.6 cm with a centrally-located, everted nipple and areolar complex, measuring 1.3 x 1.1 and 3.2 x 3.0 cm, respectively. The epidermal surface also displays a linear incision measuring 3.5 cm in length by 0.1 cm in diameter, which is located 2.1 cm from the areolar complex at the 3:00 aspect. The specimen is inked as follows: Superior/anterior-blue, inferior/anterior-green, posterior-black. Sectioning reveals a previous biopsy cavity measuring 5.5 x 3.2 x 1.9 cm in greatest dimensions. This cavity opens to the posterior aspect, is 0.2 cm from the epidermal surface, and 0.7 cm from the inferior/anterior margin. This cavity is located in the lower outer quadrant. The cavity is surrounded by perez-shrestha fibrous tissue, as well as a slight amount of fat necrosis. Sectioning through the remainder of the specimen reveals bright yellow fibrofatty cut surfaces, with a fibrous tissue encompassing approximately 20% of the specimen. No additional nodules or lesions are noted grossly. The specimen is submitted representatively as follows: . B1 perpendicular section through nipple B2 telecommunications sales representative sections from most medial aspect of previous biopsy cavity to show relationship with previous incision on epidermis B3 telecommunications sales representative section of biopsy cavity taken from medial aspect B4 telecommunications sales representative section of biopsy cavity to show relationship with posterior and inferior margins B5-B8 additional telecommunications sales representative sections of previous biopsy cavity submitted from medial to lateral aspects B9 upper inner quadrant B10 lower inner quadrant B11 lower outer quadrant B12 upper outer quadrant. (CAA; 09/06/2018) QAC/QAC . 02 Pathologist provided ICD-10: C50.912, N61.0 . 02 CPT . 889111, 844775 Specimen Comment: A courtesy copy of [place] [address] PATHOLOGY RPT PROCEDURE Name: LAUREL HUTCHINS Room: [address] IN R.#: [id number] Admission: 09/05/18 Date of : 57 Discharge: 09/06/18 Report #: [id number] Path Case #: [id number] Specimen Comment: [phone], . Specimen Comment: Report sent to / DR VICENTE Specimen Comment: A duplicate report has been generated due to demographic updates. Performed at: 01 [facility] [address] [place] [address] [address], [place], [place] [id number] MD Bulmaro Chaudhary MD Phone: [phone] Performed at: [address] [facility] [address] DELMY Pruitt [id number] MD Matt Cho MD Phone: [phone]
== END 2018-09-06 11:39 | disposition home health service (06) | DRG 582 ==
LOC: M.SUR 06:17 → M.TBA 10:47 → M.ORTHSURG 10:47
PROVIDERS: ADMIT Surgery
PROC: 0HTV0ZZ Resection of Bilateral Breast, Open Approach (ICD-10-PCS; principal; 2018-09-05)
DX: C50.912 Malignant neoplasm of unspecified site of left female breast (principal); C77.3 Secondary and unspecified malignant neoplasm of axilla and upper limb lymph nodes; I10 Essential (primary) hypertension; Z90.710 Acquired absence of both cervix and uterus; Z98.891 History of uterine scar from previous surgery; Z88.8 Allergy status to other drugs, medicaments and biological substances

== ENCOUNTER 2018-11-09 17:34 | Inpatient (IN) | payer OTHER ==
[~2018-11-09] VITALS: Ht 165.1 cm; Wt 62.1 kg
--- NOTE | ~2018-11-09 | CON ---
[address] [address] CONSULTATION Name: OLIVERIO HUTCHINS Room: [address] IN M.R.#: [id number] Admission: 11/09/18 Attend Phys: Ashlie Houston MD Discharge: 11/11/18 Date of : 57 Report #: [id number] THIS REPORT FOR: //name// CC: Ashlie Buck DATE OF SERVICE: 11/10/2018 REASON FOR CONSULTATION: Breast cancer, neutropenic fever. REQUESTING PHYSICIAN: Dr. Houston. HISTORY OF PRESENT ILLNESS: The patient is a pleasant 63-year-old woman who is undergoing adjuvant chemotherapy for high-risk breast cancer. She received 3 cycles of intermittent Cytoxan. Yesterday, she was seen in the office after a week of therapy. She was extremely feeling tired, had episodes of diarrhea and appeared to be dehydrated. She was given IV fluids. CBC was checked, she was found to have neutropenia. She was given a dose of Rocephin and sent home. ____ she spiked high fever. She was admitted to the hospital for febrile neutropenia. Oncology consultation is requested today, she was feeling much better. She does not have complaints of cough, shortness of breath. No intermittent diarrhea anymore. PAST MEDICAL HISTORY: Significant for breast cancer; otherwise, she is healthy. She has irritable bowel syndrome and it is true she is being diagnosed with an insensitivity. SOCIAL HISTORY: Has very supportive . Does not smoke, does not drink alcohol. FAMILY HISTORY: Noncontributory. REVIEW OF SYSTEMS: Negative for weight loss. Positive for recurrent mucositis, mouth sores. Otherwise, see above. PHYSICAL EXAMINATION: GENERAL: Reveals a well-developed, well-nourished female, not in acute distress. VITAL SIGNS: Blood pressure 123/68, heart rate is 88, temperature 98.8, respirations 18. HEENT: Does not reveal thrush. HEART: Normal S1, S2. LUNGS: Clear. ABDOMEN: Soft. No organomegaly. EXTREMITIES: No edema. SKIN: [place] [address] CONSULTATION Name: OLIVERIO HUTCHINS Room: [address]#: [id number] Admission: 11/09/18 Attend Phys: Ashlie Houston MD Discharge: 11/11/18 Date of : 57 Report #: [id number] MENTAL STATUS: Alert, oriented x 3. LABORATORY DATA: White count 1.7, hemoglobin 8.5, platelets 89, absolute neutrophil count 0.2. Sodium 140, potassium 3.0, magnesium 1.9. Chest x-ray, no acute process. Urinalysis, white cells 6-15, bacteria 1-9. ASSESSMENT AND PLAN: 1. Febrile neutropenia. I agree with antibiotics. The patient is feeling much better this evening. Her counts are recovering, monocytes are very high, tomorrow her counts probably, we expect to be normal. 2. Breast cancer. Proceed with next cycle of chemotherapy in 1 week. She has received Neulasta in the past and will continue Neulasta, we will give her prophylactic antibiotics. 3. ? Urinary tract infection. Culture is negative. Continue current antibiotics. Hopefully, the patient can be discharged home tomorrow. Thank you very much for allowing me to participate in care of this patient. By: 1552 [id number] Miner MD /nt
[2018-11-09 17:46] VITALS: BP 139/81
[2018-11-09] MEDS ORDERED: FAMOTIDINE 20 M20 MG PO (17:51)
[2018-11-09] MEDS ORDERED: CARTIA XT180 M1 PO (17:51)
[2018-11-09 18:09] LABS: HEMATOCRIT 30.5 % (37.0-47.0); HEMOGLOBIN 10.5 gm/dL (12.0-15.0); MCV 90.6 fL (80.0-100.0)
[2018-11-09 18:11] LABS: MCH 31.1 pg (26.0-34.0); MCHC 34.3 g/dL (28.0-37.0); MPV 8.2 fl. (7.2-11.1); NUCLEATED RBCS 1 /100WBC; PLATELET COUNT* 100 thou/uL (150-400); RBC 3.36 mil/uL (4.20-5.00); RDW-CV 13.9 % (10.5-14.5)
[2018-11-09 18:17] LABS: WBC 0.7 thou/uL (4.0-11.0)
[2018-11-09 18:22] LABS: ALBUMIN 3.4 g/dL (3.4-5.0); CALCIUM 9.1 mg/dL (8.5-10.1); CREATININE 0.7 mg/dL (0.6-1.3); MAGNESIUM 1.7 mg/dL (1.8-2.4); POTASSIUM 3.5 mmol/L (3.5-5.1); TOTAL BILIRUBIN 0.2 mg/dL (<0.1-1.0); TOTAL PROTEIN 6.9 g/dL (6.4-8.2)
[2018-11-09 18:31] LABS: BE -2.9 mmol/L (-2 to +3); PCO2 31.7 mmHg (35.0-45.0); PO2 84.9 mmHg (75.0-100.0); pH 7.432 (7.340-7.450)
[2018-11-09 18:41] LABS: ABSOLUTE LYMPHOCYTES 0.3 thou/uL (0.8-5.3); ABSOLUTE MONOCYTES 0.2 thou/uL (0.0-1.2); ABSOLUTE NEUTROPHILS 0.2 thou/uL (1.6-8.1); METAMYELOCYTES 1 %; MYELOCYTES 3 %; PLATELET ESTIMATE DECREASED
[2018-11-09 19:04] LABS: URINE BILIRUBIN NEGATIVE (Negative); URINE BLOOD 3+ (Negative); URINE CLARITY CLEAR; URINE COLOR YELLOW; URINE GLUCOSE-RANDOM NEGATIVE (Negative); URINE KETONES TRACE (Negative); URINE LEUKOCYTES-REFLEX NEGATIVE (Negative); URINE NITRITE-REFLEX NEGATIVE (Negative); URINE PROTEIN TRACE (Negative); URINE SPECIFIC GRAVITY >= 1.030 (1.005-1.030); URINE UROBILINOGEN 0.2 E.U./dl (0.2-1.0)
[2018-11-09 19:11] LABS: INFLUENZA A ANTIGEN None Detected (None Detect); INFLUENZA B ANTIGEN None Detected (None Detect)
[2018-11-09 19:19] LABS: BACTERIA-REFLEX 1-9 Few /HPF (None Seen); CASTS None Seen /LPF (None Seen); CRYSTALS None Seen /LPF (None Seen); SQUAMOUS 4-10 Moderate /LPF (0-3); URINE RBC 0-2 Rare /HPF (0-2); URINE WBC-REFLEX 6-15 Few /HPF (0-5)
[2018-11-09 20:00] VITALS: BP 115/58
[2018-11-09 20:10] VITALS: BP 121/71
[2018-11-09] MEDS ORDERED: COMPAZINE10 MG PO (23:05)
[2018-11-10] VITALS: BP 116/55
[2018-11-10 04:00] VITALS: BP 124/64
--- NOTE | 2018-11-10 06:42 | NUR ---
PT ARRIVED FROM ER AT AROUND 2030 TO ROOM 210. ASSESSMENT COMPLETED CHARTED. PT PUT ON NEUTRAPENIC PRECAUTIONS FOR WBC COUNT OF 0.7. ABLE TO MAKE NEEDS KNOWN. NO C/O PAIN OR DISCOMFORT. UP AD BAO, IVF RUNNING PER P.O. PT WAS BY AT THE BEGINNING OF THE SHIFT AND LEFT SHORTLY AFTER. PAPERWORK SIGNED, ORIENTED TO ROOM. CALL LIGHT WITHIN REACH. WILL CONTINUE TO MONITOR.
--- NOTE | 2018-11-10 07:25 | NUR ---
CHNAGE OF SHIFT BEDSIDE REPORT GIVEN PATIENT SEEN AT BEDSIDE, IN BED ASLEEP ASSUMED PATIENT CARE
[2018-11-10 08:00] VITALS: BP 118/60
[2018-11-10 11:15] LABS: HEMATOCRIT 24.7 % (37.0-47.0); MCH 31.4 pg (26.0-34.0); MCHC 34.3 g/dL (28.0-37.0); MCV 91.7 fL (80.0-100.0); MPV 8.3 fl. (7.2-11.1); RBC 2.69 mil/uL (4.20-5.00); RDW-CV 13.9 % (10.5-14.5)
[2018-11-10 11:17] LABS: HEMOGLOBIN 8.5 gm/dL (12.0-15.0)
[2018-11-10 11:25] LABS: WBC 1.7 thou/uL (4.0-11.0)
[2018-11-10 11:29] LABS: CALCIUM 8.6 mg/dL (8.5-10.1); CREATININE 0.6 mg/dL (0.6-1.3); MAGNESIUM 1.9 mg/dL (1.8-2.4)
[2018-11-10 12:00] VITALS: BP 123/68
--- NOTE | 2018-11-10 14:54 | NUR ---
Pt is A&O. Resides at home with her . Active and independent. No DME. Hx of [facility] HH. No hx of SNF. Goal is home at in. Following.
[2018-11-10 16:56] VITALS: BP 128/65
[2018-11-10 20:00] VITALS: BP 138/68
[2018-11-11] VITALS: BP 104/51
[2018-11-11 04:00] VITALS: BP 104/52
--- NOTE | 2018-11-11 07:00 | NUR ---
ASSUMED PT CARE AT 1930. ASSESSMENT COMPLETED CHARTED. ABLE TO MAKE NEEDS KNOWN. IVF RUNNING PER P.O. UP AD BAO. NO C/O PAIN OR DISCOMFORT. WILL CONTINUE TO MONITOR.
--- NOTE | 2018-11-11 07:25 | NUR ---
CHANGE OF SHIFT, BEDSIDE REPORT GIVEN PATIENT SEEN AT BEDSIDE, IN BED ASLEEP ASSUMED PATIENT CARE
--- NOTE | 2018-11-11 07:55 | CON ---
[address] [address] CONSULTATION Name: OLIVERIO HUTCHINS Room: [address] IN M.R.#: [id number] Admission: 11/09/18 Attend Phys: Ashlie Houston MD Discharge: Date of : 57 Report #: [id number] THIS REPORT FOR: //name// CC: Ashlie Buck DATE OF SERVICE: 11/10/2018 ATTENDING PHYSICIAN: Dr. Houston. REASON FOR EVALUATION: Fevers with neutropenia. HISTORY OF PRESENT ILLNESS: Chart reviewed, patient examined. This is a 63-year-old with known history of breast cancer. She is status post-mastectomy. She has been on chemotherapy and [facility] through [facility]. She was found to be febrile. Laboratory confirmed a low white count at 700. Due to her apparent illness, she was referred for admission. She did complain of some sore throat. Denies significant pulmonary or gastrointestinal related complaints. Evaluation urinalysis did show moderate pyuria. Chest x-ray was otherwise unremarkable. Blood cultures have been collected and are pending as is the urine culture. She was started empirically on antimicrobials ceftriaxone as an outpatient, started on Zosyn and vancomycin as well as levofloxacin. Overall, she feels somewhat better at this point. ALLERGIES: LISTED TO BETADINE AND THIMEROSAL. DOES HAVE SOME NONMEDICAL RELATED ALLERGIES INCLUDING ENVIRONMENTAL, PEANUT SOAP AND HAS A GLUTEN SENSITIVITY WELL. CURRENT MEDICATIONS: Include levofloxacin, diltiazem, potassium, metoprolol, atorvastatin, loratadine, vancomycin, Zosyn, enoxaparin, famotidine, p.r.n. analgesics, antiemetics and albuterol. PAST MEDICAL HISTORY: Includes breast cancer, celiac disease, irritable bowel syndrome, some history of palpitations, previous appendectomy, right hemicolectomy, hysterectomy and bilateral mastectomy. SOCIAL HISTORY: Nonsmoker and no ethanol. FAMILY HISTORY: Noncontributory. REVIEW OF SYSTEMS: Otherwise unremarkable for 10 review of systems with exception noted above in the history of present illness. PHYSICAL EXAMINATION: GENERAL: She is alert, cooperative and appropriate. She is in lwke-ue-mjnyqvxx distress. She is not encephalopathic. She does appear to [place] [address] CONSULTATION Name: OLIVERIO HUTCHINS Room: [address]#: [id number] Admission: 11/09/18 Attend Phys: Ashlie Houston MD Discharge: Date of : 57 Report #: [id number] pale. VITAL SIGNS: Temperature 98.8 and T-max since admission 99.5, pulse 88, respirations 15 and blood pressure 120/68. SKIN: Warm, dry and no rashes. HEENT: Normocephalic. Extraocular muscles intact. NECK: Supple. Oropharynx is without lesion. LUNGS: Generally clear to auscultation. HEART: Regular rate and rhythm without murmur. ABDOMEN: Soft, nontender and nondistended. EXTREMITIES: No cyanosis, no edema. GENITOURINARY: Deferred. RECTAL: Deferred. LABORATORY DATA: Electrolytes currently sodium 144, potassium 3.0, chloride 109, bicarb is 27, anion gap of 8, BUN and creatinine 5 and 0.6. Estimated GFR 101. Initial CBC: White count 0.7 and repeat today white count is now 1.7, H and H 8.5 and 24.7, platelets of 89. Initial differential showed a neutropenia of 200, absolute. Lactic acid 1.8. ABGs: pH 7.432, pCO2 of 31.7, pO2 of 84.9 on room air. She does have mildly elevated transaminases, AST of 62 and ALT of 82. Albumin 3.4 and total protein 6.9. Influenza antigen was negative. Rapid strep A testing was negative as well. Blood cultures sterile thus far. ASSESSMENT: Fevers in the setting of neutropenia. The patient undergoing chemotherapy for breast cancer. At this point, she does not look overtly toxic, this may be non-bacterial etiology or perhaps a noninfectious cause. I think it is reasonable to continue empiric therapy. We will check abdominal ultrasound given the mildly elevated LFTs in this setting. We will pursue additional presenting signs and symptoms. Discussed in detail with the patient. <ELECTRONICALLY SIGNED> By: Chris Brown MD 11/11/18 0755 [id number] Brown MD /nt
[2018-11-11 08:00] VITALS: BP 126/65
[2018-11-11 11:30] VITALS: BP 130/70
[2018-11-11] MEDS ORDERED: LEVAQUIN 500 M500 M2 PO (13:20)
[2018-11-11 13:24] VITALS: BP 130/70
--- NOTE | 2018-11-11 14:00 | NUR ---
PATIENT DISCHARGED TO HOME [facility]AC[facility] REMOVED PACKED WITH HEPARIN PERSONAL BELONGINGS RETURNED ESCORTED OUT VIA GOOD CONDITION TO WAITING CAR
== END 2018-11-11 14:32 | disposition home or self-care (01) | DRG 808 ==
LOC: M.ERS 17:34 → M.2W 19:27 → M.TBA-ER 19:27 → M.2W 21:23
PROVIDERS: Personal Emergency Response Attendant; ADMIT Internal Medicine
DX: D70.1 Agranulocytosis secondary to cancer chemotherapy (principal); J18.9 Pneumonia, unspecified organism; R65.10 Systemic inflammatory response syndrome (SIRS) of non-infectious origin without acute organ dysfunction; R50.81 Fever presenting with conditions classified elsewhere; E83.42 Hypomagnesemia; T45.1X5A Adverse effect of antineoplastic and immunosuppressive drugs, initial encounter; Y92.89 Other specified places as the place of occurrence of the external cause; Z87.440 Personal history of urinary (tract) infections; Z85.3 Personal history of malignant neoplasm of breast; Z92.21 Personal history of antineoplastic chemotherapy; Z90.49 Acquired absence of other specified parts of digestive tract; Z90.13 Acquired absence of bilateral breasts and nipples; Z90.710 Acquired absence of both cervix and uterus; Z79.899 Other long term (current) drug therapy; Z91.010 Allergy to peanuts; Z88.8 Allergy status to other drugs, medicaments and biological substances; Z91.018 Allergy to other foods; Z91.048 Other nonmedicinal substance allergy status; Z83.79 Family history of other diseases of the digestive system

== ENCOUNTER 2021-01-26 13:31 | Emergency (ER) | payer OTHER ==
[~2021-01-26] VITALS: Ht 165.1 cm; Wt 65.8 kg
[~2021-01-26 13:31] MED LIST changes: +CARTIA XT180 M1 PO; +COMPAZINE10 MG PO; +FAMOTIDINE 20 M20 MG PO; +LEVAQUIN 500 M500 M2 PO
[2021-01-26] MEDS ORDERED: CEPHALEXIN500 MG PO (14:46)
[2021-01-26 15:00] VITALS: BP 131/65
== END 2021-01-26 15:01 | disposition home or self-care (01) ==
LOC: M.ERS 13:31
DX: S51.812A Laceration without foreign body of left forearm, initial encounter (principal); Z90.49 Acquired absence of other specified parts of digestive tract; Z85.3 Personal history of malignant neoplasm of breast; Z88.8 Allergy status to other drugs, medicaments and biological substances; W10.8XXA Fall (on) (from) other stairs and steps, initial encounter; Y93.89 Activity, other specified; Y92.89 Other specified places as the place of occurrence of the external cause; Y99.8 Other external cause status